=== PATIENT | male | born 1930 | race Two or more races ===

== ENCOUNTER 2019-04-17 19:09 | Emergency (ER) | payer MEDICAID ==
[~2019-04-17] VITALS: Ht 177.8 cm; Wt 81.6 kg
[~2019-04-17 19:09] MED LIST: AMLO5TAB13 PO; ASPI81TA27 PO; ATO40T PO; DOXA1TAB42 PO; FURO40TA PO; GABA300C10 PO; GEMF600T7 PO; METF-370 PO; PAR20T PO; RANI150C11 PO
[2019-04-17 20:12] LABS: Basophils # (auto) 0.1 uL; Eosinophils # (auto) 0.2 uL; Eosinophils % (auto) 1.5 % (0.0-7.0); Mean Corpuscular Hemoglobin 26.3 pg (28.0-32.0); Red Cell Distribution Width 15.9 % (11.8-14.3)
[2019-04-17 20:14] LABS: Basophils % (auto) 1.1 % (0.0-2.0); Hematocrit 39.6 % (41.0-53.0); Hemoglobin 12.7 g/dL (13.5-17.5); Lymphocytes # (auto) 2.4 uL; Lymphocytes % (auto) 21.8 % (10.0-50.0); Mean Corpuscular Volume 82.2 fL (80.0-100.0); Monocytes % (auto) 8.9 % (0.0-12.0); Neutrophils # (auto) 7.3 uL; Neutrophils % (auto) 66.7 % (37.0-80.0); Platelet Count (auto) 348 10^3/uL (140-450); Red Blood Cells 4.82 10^6/uL (4.5-5.90); White Blood Cell 10.9 10^3/uL (4.4-10.8)
[2019-04-17 20:28] LABS: Albumin 3.4 g/dL (3.4-5.0); Calcium 9.2 mg/dL (8.5-10.1); Potassium 4.9 mmol/L (3.5-5.1)
[2019-04-17 20:31] LABS: BUN/Creatinine Ratio 27.5; Bilirubin, Total 0.2 mg/dL (0.2-1.0); Total Protein 8.5 g/dL (6.4-8.2)
[2019-04-17 20:35] LABS: Urine Bacteria MANY /hpf (None Seen); Urine Blood 1+ /uL (Negative); Urine Mucus FEW (None Seen); Urine Specific Gravity 1.012 (1.001-1.035); Urine WBC 217 /hpf (0 - 3); Urine WBC Clumps PRESENT /hpf (None Seen)
[2019-04-18] MEDS ORDERED: cefTRIAXone 1GM/50ML D5W 50 ML IV ONE (07:45)
[2019-04-18] MEDS ORDERED: SODIUM CHLORIDE 0.9% 1,000 ML IV ONE (08:15)
[2019-04-18 08:54] VITALS: BP 146/62
== END 2019-04-18 08:45 | disposition home or self-care (01) ==
LOC: ER 19:14
DX: N39.0 Urinary tract infection, site not specified (principal); E11.65 Type 2 diabetes mellitus with hyperglycemia; E78.5 Hyperlipidemia, unspecified; I10 Essential (primary) hypertension; Z90.49 Acquired absence of other specified parts of digestive tract; Z79.899 Other long term (current) drug therapy; Z79.82 Long term (current) use of aspirin
CPT/HCPCS: 36415; 74176; 80053; 81001; 85025; 96365; 99284; J0696; J7030

== ENCOUNTER 2019-05-24 11:48 | Inpatient (IN) | payer MEDICAID ==
[~2019-05-24] VITALS: Ht 177.8 cm; Wt 78.0 kg
[~2019-05-24 11:48] MED LIST changes: -AMLO5TAB13 PO; +AMLO5TAB15 PO; +ASPI-404 PO; -ASPI81TA27 PO; +FURO1TAB31 PO; -FURO40TA PO
[2019-05-24] MEDS ORDERED: SODIUM CHLORIDE 0.9% 1,000 ML IVB ONE (12:27)
[2019-05-24 12:56] LABS: Urine Bacteria MOD /hpf (None Seen); Urine Blood 1+ /uL (Negative); Urine WBC 183 /hpf (0 - 3); Urine WBC Clumps PRESENT /hpf (None Seen)
[2019-05-24 12:58] LABS: Eosinophils # (auto) 0 uL; Lymphocytes # (auto) 1.6 uL; Monocytes # (auto) 1.2 uL
[2019-05-24 13:00] LABS: Basophils # (auto) 0.1 uL; Basophils % (auto) 0.7 % (0.0-2.0); Eosinophils % (auto) 0.1 % (0.0-7.0); Hematocrit 34.7 % (41.0-53.0); Hemoglobin 11.1 g/dL (13.5-17.5); Lymphocytes % (auto) 8.1 % (10.0-50.0); Mean Corpuscular Volume 81.2 fL (80.0-100.0); Monocytes % (auto) 5.9 % (0.0-12.0); Neutrophils # (auto) 16.7 uL; Neutrophils % (auto) 85.2 % (37.0-80.0); Platelet Count (auto) 243 10^3/uL (140-450); Red Blood Cells 4.27 10^6/uL (4.5-5.90); Red Cell Distribution Width 14.9 % (11.8-14.3); White Blood Cell 19.6 10^3/uL (4.4-10.8)
[2019-05-24 13:04] LABS: Alcohol, Urine < 3.0 mg/dL (0-5); Barbiturate Scree,Urine NEGATIVE (NEGATIVE); Benzodiazephine Screen, Urine NEGATIVE (NEGATIVE); Cannabinoid Screen, Urine NEGATIVE (NEGATIVE); Cocaine Screen, Urine NEGATIVE (NEGATIVE); Opiate Scree,Urine NEGATIVE (NEGATIVE); Phencyclidine Screen, Urine NEGATIVE (NEGATIVE)
[2019-05-24 13:12] LABS: Amphetamine Screen, Urine NEGATIVE (NEGATIVE)
[2019-05-24 13:15] LABS: Alanine Aminotransferase 15 U/L (16-61); Albumin 2.6 g/dL (3.4-5.0); Anion Gap 9 (5-15); Aspartate Aminotransferase 8 U/L (15-37); BUN/Creatinine Ratio 28.9; Blood Urea Nitrogen 73 mg/dL (7-18); Calcium 8.4 mg/dL (8.5-10.1); Carbon Dioxide 22 mmol/L (21-32); Chloride 101 mmol/L (98-107); GFR African American 31 mL/min; GFR Non-African American 26 mL/min; Glucose 306 mg/dL (74-106); Magnesium 2.4 mg/dL (1.6-2.6); Potassium 4.1 mmol/L (3.5-5.1); Sodium 132 mmol/L (136-145)
[2019-05-24 13:20] LABS: Alkaline Phosphatase 71 U/L (45-117); Bilirubin, Total 0.3 mg/dL (0.2-1.0); Total Protein 7.7 g/dL (6.4-8.2)
[2019-05-24 13:23] LABS: INR 1.03 (0.9-1.15); Partial Thromboplastin Time 30.8 sec (23.64-32.05)
[2019-05-24] MEDS ORDERED: cefTRIAXone 1GM/50ML D5W 50 ML IV ONE ×2 (13:45→18:15)
[2019-05-24] MEDS ORDERED: MORPHINE SULF INJ 2 MG/ML SYRINGE 1ML IV PRN (18:15)
[2019-05-24] MEDS ORDERED: NITROGLYCERIN 0.4 MG SL TAB SL PRN (18:15)
[2019-05-24] MEDS ORDERED: ACETAMINOPHEN 500 MG TAB PO PRN (18:15)
[2019-05-24] MEDS ORDERED: DEXTROSE (50%) 50ML SYRG IV PRN (18:15)
[2019-05-24] MEDS ORDERED: ONDANSETRON HCL 4 MG/2 ML VIAL IV PRN (18:15)
[2019-05-24] MEDS ORDERED: traMADol HCL 50 MG TAB PO PRN (18:15)
[2019-05-24] MEDS: SODIUM CHLORIDE 0.9% 1,000 ML IV SCH (18:52)
--- NOTE | 2019-05-24 20:03 | NUR ---
Telemetry admit from KEVIN HILLMAN admitted to Telemetry unit after NO SBAR was received. Patient oriented to DARCY BARONE, RN primary RN, unit, room, bed, and unit policies regarding patient care and visiting hours. Patient now on continuous telemetry monitoring, tele box # 48 and telemetry reading on arrival to unit is SINUS RHYTHM. Patient placed on bedside oxygen 4 L/MIN, weighed by bedscale and encouraged to call if they need something. Family is at bedside. Patient is A/O x3, he is unaware of the time and verbalized that it was the year 1999 and our president was a bhatti. No S/S/of distress, SOB, or pain. Skin is generalized intact, there is a wound on the great left toe, family states it has been there since October and he has taken antibiotics for it off and on. Accucheck was 321 to be covered with 12 units of insulin on the moderate scale. VSS WNL. Call light is within reach, side rails up x2, bed is in lowest position, BED ALARM IS ON, urinal and bedside commode at bedside. All questions and concerns addressed, patient verbalized understanding.
[2019-05-24] MEDS: InsuLIN REG 1unit/0.01ml Soln (100units/ml) SC SCH (21:17)
[2019-05-24] MEDS: ACCU-CHEK COMFORT CURVE STRIP VI SCH (21:18)
--- NOTE | 2019-05-24 21:45 | NUR ---
Wound pictures taken of left great toe.
[2019-05-24] MEDS: GABAPENTIN 300 MG CAP PO SCH (21:51)
[2019-05-24] MEDS: DOXAZOSIN MESYL 2 MG TAB PO SCH (21:51)
[2019-05-24 22:00] VITALS: BP 144/69
[2019-05-24] MEDS ORDERED: GEMFIBROZIL 600 MG TAB PO SCH (22:00)
[2019-05-24] MEDS ORDERED: PNEUMOCOCCAL VACC POLYS 25 MCG/0.5 ML VIAL IM ONE (23:45)
[2019-05-25] MEDS: InsuLIN REG 1unit/0.01ml Soln (100units/ml) SC SCH ×6 (00:18→19:34)
[2019-05-25] MEDS: ACCU-CHEK COMFORT CURVE STRIP VI SCH ×6 (00:19→19:33)
[2019-05-25] MEDS: SODIUM CHLORIDE 0.9% 1,000 ML IV SCH ×3 (04:10→23:02)
--- NOTE | 2019-05-25 04:10 | NUR ---
0400 accucheck was 64, orange juice was given. Will reassess in 10 min.
--- NOTE | 2019-05-25 04:24 | NUR ---
Patient's blood sugar is now 100. He is resting in bed. No S/S of distress. Will continue to monitor and round prn.
[2019-05-25 04:56] VITALS: BP 115/50
[2019-05-25 06:06] LABS: Basophils # (auto) 0.1 uL; Eosinophils # (auto) 0.1 uL; Hematocrit 31.2 % (41.0-53.0); Hemoglobin 10.3 g/dL (13.5-17.5)
[2019-05-25 06:08] LABS: Basophils % (auto) 0.6 % (0.0-2.0); Eosinophils % (auto) 0.5 % (0.0-7.0); Lymphocytes # (auto) 1.2 uL; Lymphocytes % (auto) 8.1 % (10.0-50.0); Mean Corpuscular Hemoglobin 26.4 pg (28.0-32.0); Monocytes # (auto) 1.1 uL; Monocytes % (auto) 7.7 % (0.0-12.0); Neutrophils % (auto) 83.1 % (37.0-80.0); Platelet Count (auto) 213 10^3/uL (140-450); Red Cell Distribution Width 14.7 % (11.8-14.3); White Blood Cell 14.5 10^3/uL (4.4-10.8)
[2019-05-25 06:29] LABS: Albumin 2.2 g/dL (3.4-5.0); Calcium 8.1 mg/dL (8.5-10.1); Potassium 3.3 mmol/L (3.5-5.1)
[2019-05-25 06:32] LABS: BUN/Creatinine Ratio 28.4; Bilirubin, Total 0.3 mg/dL (0.2-1.0); Total Protein 6.8 g/dL (6.4-8.2)
[2019-05-25] MEDS: cefTRIAXone 1GM/50ML D5W 50 ML IV SCH (09:29)
[2019-05-25] MEDS: ASPirin-EC 81 mg tab PO SCH (09:29)
[2019-05-25] MEDS: PARoxetine 20 MG TAB PO SCH (09:30)
[2019-05-25] MEDS: PANTOPRAZOLE 40 MG TAB PO SCH (09:30)
[2019-05-25] MEDS: amLODIPine BESYLATE 5 MG TAB PO SCH (09:30)
[2019-05-25] MEDS: GABAPENTIN 300 MG CAP PO SCH (09:30)
--- NOTE | 2019-05-25 14:37 | NUR ---
Endorsed care to Zita ARAGON.
--- NOTE | 2019-05-25 14:40 | NUR ---
RECEIVED PATIENT FROM DAY SHIFT RN. PATIENT RESTING IN BED. NO S/S OF DISTRESS NOTED. DENIED PAIN FOR NOW. POC INSTRUCTED AND ENCOURAGED PATIENT TO CALL FOR BROOMCORN SORTER IF NEEDED. BED IN LOWEST POSITION WITH SIDE RAILS UP X 2. CALL MURRELL WITHIN REACH. ALARM ON. CONTINUE TO MONITOR FOR CHANGES Q1H AND PRN.
--- NOTE | 2019-05-25 16:00 | NUR ---
ACCU-CHECK, BS 269. INSULIN GIVEN ORDERED. CONTINUE TO MONITOR.
[2019-05-25] MEDS: ATORVASTATIN 20 MG TAB PO SCH (18:23)
--- NOTE | 2019-05-25 19:40 | NUR ---
ACCU-CHECK, BS 143. INSULIN GIVEN ORDERED. CONTINUE TO MONITOR.
[2019-05-25 21:37] VITALS: BP 125/62
[2019-05-25] MEDS: DOXAZOSIN MESYL 2 MG TAB PO SCH (21:39)
--- NOTE | 2019-05-25 21:39 | NUR ---
ORAL MEDICATION GIVEN ORDERED. PATIENT SWALLOWED WELL. CONTINUE CARE.
[2019-05-26] MEDS: ACCU-CHEK COMFORT CURVE STRIP VI SCH ×5 (00:28→17:16)
[2019-05-26] MEDS: TEMAZEPAM 15 MG CAP PO PRN ×2 (00:29→22:17)
--- NOTE | 2019-05-26 00:29 | NUR ---
ACCU-CHECK, BS 126. NO COVERAGE. CONTINUE TO MONITOR.
--- NOTE | 2019-05-26 02:29 | NUR ---
PATIENT SLEEPING. NO S/S OF DISTRESS NOTED. CONTINUE TO MONITOR.
[2019-05-26] MEDS: InsuLIN REG 1unit/0.01ml Soln (100units/ml) SC SCH ×5 (03:49→17:16)
--- NOTE | 2019-05-26 04:07 | NUR ---
ACCU-CHECK, BS 144. INSULIN GIVEN ORDERED. CONTINUE TO MONITOR.
[2019-05-26 05:00] VITALS: BP 121/66
--- NOTE | 2019-05-26 07:15 | NUR ---
Opening Note Received report from tender labor RN. Patient is resting in bed with eyes closed, easy to wake by calling name. Patient denies pain at this time. Patient is on 4L NC, denies shortness of breath at this time. Reviewed plan of care with patient, patient verbalized understanding. Bed in low and locked position, call light within reach. Will continue to monitor Q1 hour and PRN.
[2019-05-26] MEDS: cefTRIAXone 1GM/50ML D5W 50 ML IV SCH (08:30)
[2019-05-26 09:00] VITALS: BP 126/63
[2019-05-26] MEDS: PANTOPRAZOLE 40 MG TAB PO SCH (09:32)
[2019-05-26] MEDS: GABAPENTIN 300 MG CAP PO SCH (09:33)
[2019-05-26] MEDS: PARoxetine 20 MG TAB PO SCH (09:33)
[2019-05-26] MEDS: ASPirin-EC 81 mg tab PO SCH (09:33)
[2019-05-26] MEDS: amLODIPine BESYLATE 5 MG TAB PO SCH (09:33)
--- NOTE | 2019-05-26 10:25 | NUR ---
Patient ambulated Patient ambulated to restroom, standby assistance and walker. Patient tolerated well. Will continue to monitor Q1 hour and PRN.
[2019-05-26] MEDS: SODIUM CHLORIDE 0.9% 1,000 ML IV SCH ×2 (11:34→15:15)
[2019-05-26 13:00] VITALS: BP 113/63
--- NOTE | 2019-05-26 16:45 | NUR ---
Abdominal Pain Patient complains of abdominal pain 8/10, and is requesting pain medications. Will medicate per orders.
[2019-05-26] MEDS: ATORVASTATIN 20 MG TAB PO SCH (17:15)
--- NOTE | 2019-05-26 19:05 | NUR ---
Closing Note Report given to scene shifter RN. Family at bedside, no signs or symptoms of distress noted at this time.
--- NOTE | 2019-05-26 19:41 | NUR ---
RECEIVED PATIENT FROM DAY SHIFT RN. PATIENT RESTING IN BED. FAMILY AT BEDSIDE. NO S/S OF DISTRESS NOTED. DENIED PAIN FOR NOW. ASSISTED PATIENT TO BATHROOM. PATIENT HAD BM. POC INSTRUCTED AND ENCOURAGED PATIENT TO CALL FOR CD MANUFACTURING SUPERVISOR IF NEEDED. BED IN LOWEST POSITION WITH SIDE RAILS UP X 2. CALL MURRELL WITHIN REACH. ALARM ON. CONTINUE TO MONITOR FOR CHANGES Q1H AND PRN.
[2019-05-26] MEDS ORDERED: InsuLIN REG 1unit/0.01ml Soln (100units/ml) SC SCH (20:00)
[2019-05-26 22:00] VITALS: BP 138/64
[2019-05-26] MEDS: DOXAZOSIN MESYL 2 MG TAB PO SCH (22:07)
--- NOTE | 2019-05-26 22:17 | NUR ---
ORAL MEDICATION GIVEN ORDERED. PATIENT SWALLOWED WELL. CONTINUE CARE.
[2019-05-27] MEDS: ACCU-CHEK COMFORT CURVE STRIP VI SCH ×4 (00:13→17:57)
[2019-05-27] MEDS: InsuLIN REG 1unit/0.01ml Soln (100units/ml) SC SCH ×4 (00:14→17:57)
--- NOTE | 2019-05-27 00:14 | NUR ---
ACCU-CHECK, BS 225. INSULIN GIVEN ORDERED. CONTINUE TO MONITOR.
--- NOTE | 2019-05-27 03:06 | NUR ---
PATIENT SLEEPING. NO S/S OF DISTRESS NOTED. CONTINUE TO MONITOR.
[2019-05-27 05:00] VITALS: BP 125/51
--- NOTE | 2019-05-27 05:55 | NUR ---
ACCU-CHECK, BS 96. NO COVERAGE. CONTINUE TO MONITOR.
[2019-05-27 06:48] LABS: Lymphocytes # (auto) 1.6 uL
[2019-05-27 06:51] LABS: Basophils # (auto) 0 uL; Basophils % (auto) 0.4 % (0.0-2.0); Eosinophils # (auto) 0.3 uL; Hematocrit 31.4 % (41.0-53.0); Hemoglobin 10.1 g/dL (13.5-17.5); Lymphocytes % (auto) 17.9 % (10.0-50.0); Mean Corpuscular Hemoglobin 26.3 pg (28.0-32.0); Mean Corpuscular Hgb Conc. 32.2 g/dL (32.0-36.0); Mean Corpuscular Volume 81.6 fL (80.0-100.0); Monocytes # (auto) 0.9 uL; Monocytes % (auto) 10.1 % (0.0-12.0); Neutrophils % (auto) 68.6 % (37.0-80.0); Nucleated Red Blood Cells % 0.1 %; Platelet Count (auto) 229 10^3/uL (140-450); Red Blood Cells 3.84 10^6/uL (4.5-5.90); Red Cell Distribution Width 15.1 % (11.8-14.3); White Blood Cell 8.7 10^3/uL (4.4-10.8)
[2019-05-27 07:10] LABS: BUN/Creatinine Ratio 27.9; Calcium 8.2 mg/dL (8.5-10.1); Potassium 3.9 mmol/L (3.5-5.1)
--- NOTE | 2019-05-27 07:35 | NUR ---
Opening Note Received report from harness fitter RN. Patient is resting in bed, with eyes closed. Patient is on 4L NC, respirations even and unlabored. Bed in low and locked position, call light within reach. Will continue to monitor Q1 hour and PRN.
[2019-05-27] MEDS: SODIUM CHLORIDE 0.9% 1,000 ML IV SCH (09:04)
[2019-05-27] MEDS: cefTRIAXone 1GM/50ML D5W 50 ML IV SCH (09:04)
[2019-05-27 09:21] VITALS: BP 137/73
[2019-05-27] MEDS: GABAPENTIN 300 MG CAP PO SCH (09:42)
[2019-05-27] MEDS: amLODIPine BESYLATE 5 MG TAB PO SCH (09:42)
[2019-05-27] MEDS: PARoxetine 20 MG TAB PO SCH (09:42)
[2019-05-27] MEDS: PANTOPRAZOLE 40 MG TAB PO SCH (09:42)
[2019-05-27] MEDS: ASPirin-EC 81 mg tab PO SCH (09:43)
--- NOTE | 2019-05-27 11:15 | NUR ---
Dr. Lucio at bedside Reviewing plan of care with patient and family, using a shearing machine tender. Daughters and patient are refusing rehab after discharge. Both daughters state they want the patient to discharge home and they will care for him there. Educated by the doctor the risks of going home, family and patient verbalized understanding. Will continue to monitor
--- NOTE | 2019-05-27 12:30 | NUR ---
Physical Therapy Patient ambulated in hallway with physical therapy, using a front wheel walker. Patient tolerated well
[2019-05-27 13:34] VITALS: BP 135/75
[2019-05-27 13:44] VITALS: BP 137/73
--- NOTE | 2019-05-27 14:13 | NUR ---
SS ORDER faxed to Kinga garcia to give auth to Monika maki
--- NOTE | 2019-05-27 14:21 | NUR ---
Per Kinga Lan, [facility] is responsible for HH for this pt, faxed ss order to [facility]
--- NOTE | 2019-05-27 15:01 | NUR ---
Per [facility], Kinga sanchez responsible for HH. I called Kinga Lan and spoke to CIELO Perry and he requested Monika call him for auth. I called Monika and spoke to Veronika to call [facility]a Lan. HH is arranged
--- NOTE | 2019-05-27 16:43 | NUR ---
Per SS consult, patient has an order for home PT. Referral faxed, and per Veronika at [facility], they are willing to accept this case and start of care will be 24-48 hours upon discharge. Auth is pending from [facility]. Addendum: 05/27/19 at 1656 by KATIE CEE SS Amended: Links added.
--- NOTE | 2019-05-27 17:20 | NUR ---
Spoke to Lizbet from [facility] will start tomorrow and it is ok to discharge patient at this time.
[2019-05-27] MEDS: ATORVASTATIN 20 MG TAB PO SCH (17:57)
--- NOTE | 2019-05-27 18:20 | NUR ---
Discharge Discharge instructions given as ordered. Encourage to follow up with PMD as instructed. All questions and concerns addressed. Patient verbalized understanding. Medication reconciliation form completed and copy given to patient. IV catheter removed, catheter intact, pressure dressing applied. New prescriptions given to family member. playground monitor removed and sent back to ALEJANDRA. Patient proved with taxi voucher. Patient taken via wheelchair with all personal belongings, accompanied by staff member and family members. Patient on 4L NC. No signs or symptoms of distress noted at this time.
[2019-06-05] MEDS ORDERED: INSU1INJ19 SC (12:34)
== END 2019-05-27 18:20 | disposition home health service (06) | DRG 720 ==
LOC: EDBD 11:48 → ER 11:48 → TELE 11:49 → TELE-WESTW 20:03
PROVIDERS: ADMIT Internal Medicine; ATTEND Internal Medicine
DX: A41.9 Sepsis, unspecified organism (principal); N17.0 Acute kidney failure with tubular necrosis; G93.41 Metabolic encephalopathy; J96.10 Chronic respiratory failure, unspecified whether with hypoxia or hypercapnia; I50.9 Heart failure, unspecified; E11.22 Type 2 diabetes mellitus with diabetic chronic kidney disease; E11.65 Type 2 diabetes mellitus with hyperglycemia; I13.0 Hypertensive heart and chronic kidney disease with heart failure and stage 1 through stage 4 chronic kidney disease, or unspecified chronic kidney disease; N39.0 Urinary tract infection, site not specified; N18.4 Chronic kidney disease, stage 4 (severe); I25.10 Atherosclerotic heart disease of native coronary artery without angina pectoris; F32.9 Major depressive disorder, single episode, unspecified; B96.20 Unspecified Escherichia coli [E. coli] as the cause of diseases classified elsewhere; E78.5 Hyperlipidemia, unspecified; E11.21 Type 2 diabetes mellitus with diabetic nephropathy; K21.9 Gastro-esophageal reflux disease without esophagitis; Z99.81 Dependence on supplemental oxygen; D63.8 Anemia in other chronic diseases classified elsewhere; N40.0 Benign prostatic hyperplasia without lower urinary tract symptoms; K74.60 Unspecified cirrhosis of liver; Z95.0 Presence of cardiac pacemaker; Z90.49 Acquired absence of other specified parts of digestive tract
CPT/HCPCS: 36415; 70450; 71045; 80048; 80053; 80307; 81001; 82962; 83605; 83735; 84484; 85025; 85610; 85730; 87040; 87086; 93005; G0378; J0696; J1815

== ENCOUNTER 2020-02-22 23:00 | Inpatient (IN) | payer MEDICAID ==
[~2020-02-22] VITALS: Ht 170.2 cm; Wt 75.5 kg
[~2020-02-22 23:00] MED LIST changes: +INSU1INJ19 SC
[2020-02-23 00:08] LABS: Basophils # (auto) 0.1 10 ^3/uL (0-0.2); Basophils % (auto) 1.2 % (0.0-2.0); Eosinophils # (auto) 0.1 10 ^3/uL (0-0.8); Eosinophils % (auto) 1.3 % (0.0-7.0); Hematocrit 28.3 % (41.0-53.0); Hemoglobin 8.9 g/dL (13.5-17.5); Lymphocytes # (auto) 0.8 10 ^3/uL (0.4-5.4); Lymphocytes % (auto) 9.8 % (10.0-50.0); Mean Corpuscular Hgb Conc. 31.6 g/dL (32.0-36.0); Mean Corpuscular Volume 85.6 fL (80.0-100.0); Monocytes % (auto) 12.3 % (0.0-12.0); Neutrophils % (auto) 75.4 % (37.0-80.0); Nucleated Red Blood Cells % 0.1 %; Platelet Count (auto) 293 10^3/uL (140-450); Red Blood Cells 3.31 10^6/uL (4.5-5.90); Red Cell Distribution Width 15.3 % (11.8-14.3)
[2020-02-23 00:21] LABS: Alanine Aminotransferase 31 U/L (16-61); Albumin 2.2 g/dL (3.4-5.0); Anion Gap 8 (5-15); Aspartate Aminotransferase 15 U/L (15-37); BUN/Creatinine Ratio 10.1; Blood Urea Nitrogen 43 mg/dL (7-18); Calcium 7.8 mg/dL (8.5-10.1); Carbon Dioxide 28 mmol/L (21-32); Chloride 94 mmol/L (98-107); GFR African American 17 mL/min; GFR Non-African American 14 mL/min; Glucose 166 mg/dL (74-106); Potassium 4.3 mmol/L (3.5-5.1); Sodium 130 mmol/L (136-145)
[2020-02-23 00:23] LABS: INR 1.18 (0.9-1.15); Partial Thromboplastin Time 28.8 sec (23.64-32.05)
[2020-02-23 00:55] LABS: Urine Bacteria NONE SEEN /hpf (None Seen); Urine Blood 1+ /uL (Negative); Urine Hyaline Cast FEW /lpf (0 - 2); Urine Mucus FEW (None Seen); Urine Specific Gravity 1.013 (1.001-1.035); Urine WBC 214 /hpf (0 - 3); Urine WBC Clumps PRESENT /hpf (None Seen)
[2020-02-23 00:57] LABS: Alkaline Phosphatase 58 U/L (45-117); Bilirubin, Total 0.4 mg/dL (0.2-1.0); Total Protein 6.8 g/dL (6.4-8.2)
[2020-02-23] MEDS ORDERED: levoFLOXacin 750MG 150 ML IV ONE (03:15)
[2020-02-23] MEDS ORDERED: SODIUM CHLORIDE 0.9% 1,000 ML IV SCH ×4 (05:35→19:00)
[2020-02-23] MEDS ORDERED: DOCUSATE SOD 100 MG CAP PO PRN (05:45)
[2020-02-23] MEDS ORDERED: HYDROcodone-ACET 5/325MG TAB PO PRN (05:45)
[2020-02-23] MEDS ORDERED: ACETAMINOPHEN 500 MG TAB PO PRN (05:45)
[2020-02-23] MEDS ORDERED: ACETAMINOPHEN 325 MG TAB PO PRN ×2 (05:45→15:45)
[2020-02-23] MEDS ORDERED: DEXTROSE (50%) 50ML SYRG IV PRN (05:45)
[2020-02-23] MEDS ORDERED: ONDANSETRON HCL 4 MG/2 ML VIAL IV PRN (05:45)
[2020-02-23] MEDS ORDERED: MORPHINE SULFATE 4 MG/ML SYR/VIAL IV PRN (05:45)
[2020-02-23] MEDS ORDERED: ALBUTEROL SULF HFA 90MCG INH 200DOSE IN SCH ×2 (06:00)
[2020-02-23] MEDS ORDERED: InsuLIN REG 1unit/0.01ml Soln (100units/ml) SC SCH (08:00)
[2020-02-23] MEDS ORDERED: ACCU-CHEK COMFORT CURVE STRIP VI SCH (08:00)
[2020-02-23 08:15] LABS: Basophils # (auto) 0.1 10 ^3/uL (0-0.2); Basophils % (auto) 0.8 % (0.0-2.0); Eosinophils # (auto) 0.2 10 ^3/uL (0-0.8); Hemoglobin 9.1 g/dL (13.5-17.5); Lymphocytes # (auto) 0.9 10 ^3/uL (0.4-5.4); Lymphocytes % (auto) 11.8 % (10.0-50.0); Mean Corpuscular Hemoglobin 27.7 pg (28.0-32.0); Mean Corpuscular Hgb Conc. 31.5 g/dL (32.0-36.0); Monocytes # (auto) 0.9 10 ^3/uL (0-1.3); Monocytes % (auto) 12.2 % (0.0-12.0); Neutrophils # (auto) 5.3 10 ^3/uL (1.6-8.6); Neutrophils % (auto) 72.2 % (37.0-80.0); Platelet Count (auto) 271 10^3/uL (140-450); Red Blood Cells 3.29 10^6/uL (4.5-5.90); Red Cell Distribution Width 15.6 % (11.8-14.3); White Blood Cell 7.3 10^3/uL (4.4-10.8)
[2020-02-23 08:29] LABS: Anion Gap 8 (5-15); BUN/Creatinine Ratio 9.7; Blood Urea Nitrogen 44 mg/dL (7-18); Calcium 7.8 mg/dL (8.5-10.1); Carbon Dioxide 27 mmol/L (21-32); Chloride 96 mmol/L (98-107); GFR African American 16 mL/min; GFR Non-African American 13 mL/min; Glucose 105 mg/dL (74-106); Potassium 4.1 mmol/L (3.5-5.1); Sodium 131 mmol/L (136-145)
[2020-02-23] MEDS: ASPirin-EC 81 mg tab PO SCH (09:38)
[2020-02-23] MEDS: GABAPENTIN 300 MG CAP PO SCH ×2 (09:41→21:20)
[2020-02-23] MEDS: GEMFIBROZIL 600 MG TAB PO SCH ×2 (09:41→21:20)
[2020-02-23] MEDS: amLODIPine BESYLATE 5 MG TAB PO SCH (09:41)
[2020-02-23] MEDS: FUROSEMIDE 40 MG TAB PO SCH (09:42)
[2020-02-23] MEDS: PARoxetine 20 MG TAB PO SCH (09:42)
[2020-02-23] MEDS: ENOXAPARIN SOD 30 MG/0.3 ML SYRINGE SC SCH (09:44)
[2020-02-23 09:52] LABS: CRP High Sensitivity 10.7 mg/dL (< 0.3)
[2020-02-23] MEDS ORDERED: ENOXAPARIN SOD 40 MG/0.4 ML SYRINGE SC SCH (10:00)
[2020-02-23] MEDS ORDERED: CHOLECALCIFEROL (VITD3) 1,000IU=25mCg TAB PO SCH (10:00)
[2020-02-23] MEDS ORDERED: methylPREDNISolone SOD SUCC 125 MG/2 ML VL IV SCH (10:00)
[2020-02-23] MEDS ORDERED: ZINC SULFATE 220mg CAP or TAB PO SCH (10:00)
[2020-02-23] MEDS: ZANTAC 150 MG PO SCH ×2 (10:00→20:52)
[2020-02-23] MEDS ORDERED: DOXYCYCLINE 100MG/250ML 250 ML IV SCH (10:00)
[2020-02-23] MEDS ORDERED: ASCORBIC ACID 1,000 MG TAB PO SCH (10:00)
[2020-02-23 10:36] VITALS: BP 114/51
[2020-02-23 10:41] VITALS: BP 109/49
[2020-02-23] MEDS: cefTRIAXone 1GM/50ML D5W 50 ML IV SCH (11:13)
[2020-02-23] MEDS: InsuLIN REG 1unit/0.01ml Soln (100units/ml) SC SCH ×3 (12:29→21:21)
[2020-02-23] MEDS: ACCU-CHEK COMFORT CURVE STRIP VI SCH ×3 (12:30→21:20)
[2020-02-23] MEDS ORDERED: MORPHINE SULF INJ 2 MG/ML SYRINGE 1ML IV PRN (15:45)
[2020-02-23 17:00] VITALS: BP 114/56
[2020-02-23] MEDS: ATORVASTATIN 20 MG TAB PO SCH (21:20)
[2020-02-23] MEDS: DOXAZOSIN MESYL 2 MG TAB PO SCH (21:21)
[2020-02-23 22:00] VITALS: BP 122/50
[2020-02-24 05:00] VITALS: BP 112/54
[2020-02-24 06:04] LABS: Basophils # (auto) 0 10 ^3/uL (0-0.2); Basophils % (auto) 0.1 % (0.0-2.0); Eosinophils # (auto) 0 10 ^3/uL (0-0.8); Hematocrit 27.6 % (41.0-53.0); Hemoglobin 9.4 g/dL (13.5-17.5); Lymphocytes # (auto) 0.5 10 ^3/uL (0.4-5.4); Lymphocytes % (auto) 9.5 % (10.0-50.0); Mean Corpuscular Hemoglobin 28.4 pg (28.0-32.0); Mean Corpuscular Hgb Conc. 33.8 g/dL (32.0-36.0); Mean Corpuscular Volume 83.8 fL (80.0-100.0); Monocytes # (auto) 0.2 10 ^3/uL (0-1.3); Monocytes % (auto) 3.8 % (0.0-12.0); Neutrophils # (auto) 4.8 10 ^3/uL (1.6-8.6); Neutrophils % (auto) 86.6 % (37.0-80.0); Platelet Count (auto) 273 10^3/uL (140-450); Red Cell Distribution Width 14.6 % (11.8-14.3); White Blood Cell 5.6 10^3/uL (4.4-10.8)
[2020-02-24] MEDS: ACCU-CHEK COMFORT CURVE STRIP VI SCH ×4 (06:07→22:33)
[2020-02-24] MEDS: InsuLIN REG 1unit/0.01ml Soln (100units/ml) SC SCH ×4 (06:08→22:40)
[2020-02-24 06:24] LABS: Albumin 2.3 g/dL (3.4-5.0); Calcium 8.4 mg/dL (8.5-10.1)
[2020-02-24 06:29] LABS: Bilirubin, Total 0.4 mg/dL (0.2-1.0)
[2020-02-24] MEDS ORDERED: SODIUM CHL 0.9% 1000 ML BAG XX ONE (07:00)
[2020-02-24 09:01] VITALS: BP 116/55
[2020-02-24] MEDS: ZANTAC 150 MG PO SCH ×3 (10:00→22:00)
[2020-02-24] MEDS: FUROSEMIDE 40 MG TAB PO SCH (10:24)
[2020-02-24] MEDS: ASPirin-EC 81 mg tab PO SCH (10:24)
[2020-02-24] MEDS: GEMFIBROZIL 600 MG TAB PO SCH ×2 (10:24→22:32)
[2020-02-24] MEDS: AZITHROMYCIN 250 MG TAB PO SCH (10:25)
[2020-02-24] MEDS: amLODIPine BESYLATE 5 MG TAB PO SCH (10:25)
[2020-02-24] MEDS: ENOXAPARIN SOD 30 MG/0.3 ML SYRINGE SC SCH (10:25)
[2020-02-24] MEDS: GABAPENTIN 300 MG CAP PO SCH ×2 (10:25→22:33)
[2020-02-24] MEDS: PARoxetine 20 MG TAB PO SCH (10:25)
[2020-02-24] MEDS: cefTRIAXone 1GM/50ML D5W 50 ML IV SCH (11:12)
[2020-02-24 13:00] VITALS: BP 116/60
[2020-02-24] MEDS ORDERED: ALOG2.5T PO (15:11)
[2020-02-24] MEDS ORDERED: AMLO10TA13 PO (15:15)
[2020-02-24] MEDS ORDERED: ALBU0.084 NEB (15:25)
[2020-02-24 16:22] VITALS: BP 101/57
[2020-02-24 20:05] VITALS: BP 122/57
[2020-02-24 22:00] VITALS: BP 122/57
[2020-02-24] MEDS: ALBUTEROL SULF 2.5 MG/0.5ML(0.5%) NEB SOLN NEB PRN (22:30)
[2020-02-24] MEDS: IPRATROPIUM BROM 0.5 MG/2.5ML INH SOL NEB PRN (22:31)
[2020-02-24] MEDS: DOXAZOSIN MESYL 2 MG TAB PO SCH (22:32)
[2020-02-24] MEDS: ATORVASTATIN 20 MG TAB PO SCH (22:32)
[2020-02-25] VITALS (7 sets, daily range): BP systolic 96–116; BP diastolic 41–54
[2020-02-25] MEDS: TEMAZEPAM 15 MG CAP PO PRN ×2 (00:02→22:16)
[2020-02-25] MEDS: ALBUTEROL SULF 2.5 MG/0.5ML(0.5%) NEB SOLN NEB PRN ×3 (06:33→14:05)
[2020-02-25] MEDS: IPRATROPIUM BROM 0.5 MG/2.5ML INH SOL NEB PRN ×3 (06:33→14:05)
[2020-02-25] MEDS: ACCU-CHEK COMFORT CURVE STRIP VI SCH ×4 (06:37→22:17)
[2020-02-25] MEDS: InsuLIN REG 1unit/0.01ml Soln (100units/ml) SC SCH ×4 (06:37→22:32)
[2020-02-25] MEDS: GEMFIBROZIL 600 MG TAB PO SCH ×2 (09:45→22:16)
[2020-02-25] MEDS: PARoxetine 20 MG TAB PO SCH (09:45)
[2020-02-25] MEDS: cefTRIAXone 1GM/50ML D5W 50 ML IV SCH (09:45)
[2020-02-25] MEDS: GABAPENTIN 300 MG CAP PO SCH ×2 (09:45→22:16)
[2020-02-25] MEDS: AZITHROMYCIN 250 MG TAB PO SCH (09:46)
[2020-02-25] MEDS: amLODIPine BESYLATE 5 MG TAB PO SCH ×2 (09:46→09:49)
[2020-02-25] MEDS: ENOXAPARIN SOD 30 MG/0.3 ML SYRINGE SC SCH (09:47)
[2020-02-25] MEDS: FUROSEMIDE 40 MG TAB PO SCH (09:47)
[2020-02-25] MEDS: ASPirin-EC 81 mg tab PO SCH (09:47)
[2020-02-25] MEDS: ZANTAC 150 MG PO SCH ×2 (09:49→22:00)
[2020-02-25] MEDS ORDERED: IOHEXOL 350 MG/ML 100ML IJ ONE (10:58)
[2020-02-25] MEDS: ATORVASTATIN 20 MG TAB PO SCH (22:15)
[2020-02-25] MEDS: DOXAZOSIN MESYL 2 MG TAB PO SCH (22:15)
[2020-02-26 05:00] VITALS: BP 121/59
[2020-02-26] MEDS: ALBUTEROL SULF 2.5 MG/0.5ML(0.5%) NEB SOLN NEB PRN (06:43)
[2020-02-26] MEDS: IPRATROPIUM BROM 0.5 MG/2.5ML INH SOL NEB PRN (06:43)
[2020-02-26] MEDS: ACCU-CHEK COMFORT CURVE STRIP VI SCH ×4 (06:55→22:00)
[2020-02-26] MEDS: InsuLIN REG 1unit/0.01ml Soln (100units/ml) SC SCH ×4 (06:55→22:01)
[2020-02-26 09:02] VITALS: BP 102/41
[2020-02-26] MEDS: cefTRIAXone 1GM/50ML D5W 50 ML IV SCH (09:52)
[2020-02-26] MEDS: FUROSEMIDE 40 MG TAB PO SCH (09:53)
[2020-02-26] MEDS: ASPirin-EC 81 mg tab PO SCH (09:53)
[2020-02-26] MEDS: GEMFIBROZIL 600 MG TAB PO SCH ×2 (09:54→22:00)
[2020-02-26] MEDS: amLODIPine BESYLATE 5 MG TAB PO SCH (09:54)
[2020-02-26] MEDS: GABAPENTIN 300 MG CAP PO SCH ×2 (09:54→22:00)
[2020-02-26] MEDS: ENOXAPARIN SOD 30 MG/0.3 ML SYRINGE SC SCH (09:55)
[2020-02-26] MEDS: AZITHROMYCIN 250 MG TAB PO SCH (09:55)
[2020-02-26] MEDS: PARoxetine 20 MG TAB PO SCH (09:55)
[2020-02-26] MEDS: ZANTAC 150 MG PO SCH ×2 (10:00→21:59)
[2020-02-26 13:00] VITALS: BP 116/54
[2020-02-26] MEDS ORDERED: SODIUM CHL 0.9% 1000 ML BAG XX ONE (13:30)
[2020-02-26 15:34] VITALS: BP 116/54
[2020-02-26 16:36] VITALS: BP 110/54
[2020-02-26] MEDS ORDERED: EPOETIN ALFA 4,000 UNIT/ML VL SC ONE (21:00)
[2020-02-26 22:00] VITALS: BP 127/57
[2020-02-26] MEDS: DOXAZOSIN MESYL 2 MG TAB PO SCH (22:00)
[2020-02-26] MEDS: ATORVASTATIN 20 MG TAB PO SCH (22:00)
[2020-02-27 05:00] VITALS: BP 105/46
[2020-02-27 06:08] LABS: Basophils # (auto) 0.1 10 ^3/uL (0-0.2); Basophils % (auto) 0.8 % (0.0-2.0); Eosinophils # (auto) 0.2 10 ^3/uL (0-0.8); Eosinophils % (auto) 3.6 % (0.0-7.0); Hematocrit 28.3 % (41.0-53.0); Hemoglobin 9.4 g/dL (13.5-17.5); Lymphocytes # (auto) 0.9 10 ^3/uL (0.4-5.4); Lymphocytes % (auto) 13.3 % (10.0-50.0); Mean Corpuscular Hemoglobin 27.8 pg (28.0-32.0); Mean Corpuscular Hgb Conc. 33.1 g/dL (32.0-36.0); Monocytes # (auto) 0.8 10 ^3/uL (0-1.3); Monocytes % (auto) 11.6 % (0.0-12.0); Neutrophils # (auto) 4.7 10 ^3/uL (1.6-8.6); Neutrophils % (auto) 70.7 % (37.0-80.0); Platelet Count (auto) 262 10^3/uL (140-450); Red Blood Cells 3.37 10^6/uL (4.5-5.90); Red Cell Distribution Width 15.9 % (11.8-14.3); White Blood Cell 6.6 10^3/uL (4.4-10.8)
[2020-02-27 06:19] LABS: BUN/Creatinine Ratio 12.9; Calcium 7.6 mg/dL (8.5-10.1); Potassium 3.6 mmol/L (3.5-5.1)
[2020-02-27] MEDS: ACCU-CHEK COMFORT CURVE STRIP VI SCH ×4 (06:52→22:24)
[2020-02-27] MEDS: InsuLIN REG 1unit/0.01ml Soln (100units/ml) SC SCH ×4 (06:52→22:26)
[2020-02-27] MEDS ORDERED: ADENOSINE 62 MG in GIVE UN-DILUTED 0 ML IV ONE (08:30)
[2020-02-27 08:41] VITALS: BP 115/53
[2020-02-27] MEDS: GABAPENTIN 300 MG CAP PO SCH ×2 (10:00→22:24)
[2020-02-27] MEDS: ZANTAC 150 MG PO SCH ×2 (10:00→22:00)
[2020-02-27] MEDS: ASPirin-EC 81 mg tab PO SCH (14:35)
[2020-02-27] MEDS: ENOXAPARIN SOD 30 MG/0.3 ML SYRINGE SC SCH (14:35)
[2020-02-27] MEDS: FUROSEMIDE 40 MG TAB PO SCH (14:36)
[2020-02-27] MEDS: AZITHROMYCIN 250 MG TAB PO SCH (14:36)
[2020-02-27] MEDS: PARoxetine 20 MG TAB PO SCH (14:36)
[2020-02-27] MEDS ORDERED: MEROPENEM 500MG IVPB 50 ML IV SCH (16:00)
[2020-02-27 16:53] VITALS: BP 100/48
[2020-02-27 21:44] VITALS: BP 109/51
[2020-02-27] MEDS: ATORVASTATIN 20 MG TAB PO SCH (22:23)
[2020-02-27] MEDS: DOXAZOSIN MESYL 2 MG TAB PO SCH (22:23)
[2020-02-27] MEDS: TEMAZEPAM 15 MG CAP PO PRN (22:27)
[2020-02-28 04:49] VITALS: BP 106/52
[2020-02-28] MEDS: InsuLIN REG 1unit/0.01ml Soln (100units/ml) SC SCH ×2 (06:41→12:28)
[2020-02-28] MEDS: ACCU-CHEK COMFORT CURVE STRIP VI SCH ×2 (06:41→12:29)
[2020-02-28] MEDS ORDERED: SODIUM CHL 0.9% 1000 ML BAG XX ONE (07:00)
[2020-02-28 08:41] VITALS: BP 101/64
[2020-02-28] MEDS: ZANTAC 150 MG PO SCH (10:00)
[2020-02-28] MEDS: ASPirin-EC 81 mg tab PO SCH (10:32)
[2020-02-28] MEDS: PARoxetine 20 MG TAB PO SCH (10:33)
[2020-02-28] MEDS: AZITHROMYCIN 250 MG TAB PO SCH (10:33)
[2020-02-28] MEDS: GABAPENTIN 300 MG CAP PO SCH (10:33)
[2020-02-28] MEDS: ENOXAPARIN SOD 30 MG/0.3 ML SYRINGE SC SCH (10:34)
[2020-02-28] MEDS: FUROSEMIDE 40 MG TAB PO SCH (10:34)
[2020-02-28 12:47] VITALS: BP 118/62
[2020-02-28 15:14] VITALS: BP 135/52
[2020-02-28] MEDS ORDERED: EPOETIN ALFA 4,000 UNIT/ML VL SC ONE (21:00)
== END 2020-02-28 15:30 | disposition home or self-care (01) | DRG 133 ==
LOC: ER 23:00 → EDBD 23:00 → TELE 23:01 → TELE-EAST 02-23 10:34
PROVIDERS: ADMIT Hospitalist; ATTEND Internal Medicine Nephrology
PROC: 5A1D70Z Performance of Urinary Filtration, Intermittent, Less than 6 Hours Per Day (ICD-10-PCS; 2020-02-24)
PROC: 5A1D70Z Performance of Urinary Filtration, Intermittent, Less than 6 Hours Per Day (ICD-10-PCS; principal; 2020-02-26)
PROC: 5A1D70Z Performance of Urinary Filtration, Intermittent, Less than 6 Hours Per Day (ICD-10-PCS; 2020-02-28)
DX: J96.21 Acute and chronic respiratory failure with hypoxia (principal); J15.6 Pneumonia due to other Gram-negative bacteria; I13.2 Hypertensive heart and chronic kidney disease with heart failure and with stage 5 chronic kidney disease, or end stage renal disease; J12.9 Viral pneumonia, unspecified; I27.21 Secondary pulmonary arterial hypertension; E11.22 Type 2 diabetes mellitus with diabetic chronic kidney disease; N18.6 End stage renal disease; E11.65 Type 2 diabetes mellitus with hyperglycemia; E87.5 Hyperkalemia; N30.00 Acute cystitis without hematuria; N30.20 Other chronic cystitis without hematuria; J44.1 Chronic obstructive pulmonary disease with (acute) exacerbation; E87.1 Hypo-osmolality and hyponatremia; J98.11 Atelectasis; D63.1 Anemia in chronic kidney disease; J44.0 Chronic obstructive pulmonary disease with (acute) lower respiratory infection; Z03.818 Encounter for observation for suspected exposure to other biological agents ruled out; Z80.9 Family history of malignant neoplasm, unspecified; Z95.0 Presence of cardiac pacemaker; Z80.8 Family history of malignant neoplasm of other organs or systems; Z79.899 Other long term (current) drug therapy; Z79.82 Long term (current) use of aspirin; I50.33 Acute on chronic diastolic (congestive) heart failure
CPT/HCPCS: 36415; 70450; 71045; 71250; 71260; 72125; 74177; 78452; 80048; 80053; 81001; 82140; 82728; 82962; 83036; 83605; 83615; 83735; 83880; 84484; 85018; 85025; 85379; 85610; 85730; 86141; 87040; 87070; 87081; 87086; 87804; 87880; 90935; 93005; 93017; 93306; 93970; 94640; 96365; 96366; 96372; 96375; 97163; G0378; J0153; J0696; J1642; J1815; J1956; J2185; J3490

== ENCOUNTER 2020-04-07 11:42 | Inpatient (IN) | payer MEDICAID ==
[~2020-04-07] VITALS: Ht 175.3 cm; Wt 76.4 kg
[~2020-04-07 11:42] MED LIST changes: +ALBU0.084 NEB; +ALOG2.5T PO; +AMLO10TA13 PO; -AMLO5TAB15 PO; -ASPI-404 PO; +ASPI-543 PO; -GEMF600T7 PO; -METF-370 PO; -RANI150C11 PO
[2020-04-07] MEDS ORDERED: methylPREDNISolone SOD SUCC 125 MG/2 ML VL IV ONE (12:45)
[2020-04-07 13:09] LABS: Basophils # (auto) 0.1 10 ^3/uL (0-0.2); Basophils % (auto) 0.9 % (0.0-2.0); Eosinophils # (auto) 0.3 10 ^3/uL (0-0.8); Eosinophils % (auto) 4.5 % (0.0-7.0); Hematocrit 35.3 % (41.0-53.0); Hemoglobin 11.2 g/dL (13.5-17.5); Lymphocytes # (auto) 2.2 10 ^3/uL (0.4-5.4); Lymphocytes % (auto) 29.4 % (10.0-50.0); Mean Corpuscular Hemoglobin 27.7 pg (28.0-32.0); Mean Corpuscular Hgb Conc. 31.8 g/dL (32.0-36.0); Mean Corpuscular Volume 87.1 fL (80.0-100.0); Monocytes # (auto) 0.8 10 ^3/uL (0-1.3); Monocytes % (auto) 10.8 % (0.0-12.0); Neutrophils % (auto) 54.4 % (37.0-80.0); Nucleated Red Blood Cells % 0.1 %; Platelet Count (auto) 197 10^3/uL (140-450); Red Blood Cells 4.06 10^6/uL (4.5-5.90); Red Cell Distribution Width 18.5 % (11.8-14.3); White Blood Cell 7.4 10^3/uL (4.4-10.8)
[2020-04-07 13:24] LABS: Albumin 3.5 g/dL (3.4-5.0); Anion Gap 8 (5-15); Blood Urea Nitrogen 58 mg/dL (7-18); Calcium 8.8 mg/dL (8.5-10.1); Carbon Dioxide 28 mmol/L (21-32); Chloride 99 mmol/L (98-107); Glucose 129 mg/dL (74-106); Magnesium 2.4 mg/dL (1.6-2.6); Potassium 5.3 mmol/L (3.5-5.1); Sodium 135 mmol/L (136-145)
[2020-04-07 13:30] LABS: Alanine Aminotransferase 17 U/L (16-61); Alkaline Phosphatase 62 U/L (45-117); Aspartate Aminotransferase 8 U/L (15-37); BUN/Creatinine Ratio 14.6; Bilirubin, Total 0.5 mg/dL (0.2-1.0); CRP High Sensitivity 0.69 mg/dL (< 0.3); GFR African American 19 mL/min; GFR Non-African American 15 mL/min; Lactate Dehydrogenase 200 U/L (87-241); Total Protein 7.6 g/dL (6.4-8.2)
[2020-04-07 13:36] LABS: Lactic Acid w/Reflex 2.6 mmol/L (0.4-2.0)
[2020-04-07] MEDS ORDERED: ZINC SULFATE 220mg CAP or TAB PO ONE (14:00)
[2020-04-07] MEDS ORDERED: ASCORBIC ACID 500 MG TAB PO ONE (14:00)
[2020-04-07] MEDS ORDERED: PIPERACILLIN-TAZOB 3.375GM 100 ML IV ONE (14:15)
[2020-04-07] MEDS ORDERED: FUROSEMIDE 40 MG/4 ML VIAL IV ONE (14:15)
[2020-04-07] MEDS ORDERED: ACETAMINOPHEN 500 MG TAB PO PRN (15:00)
[2020-04-07] MEDS ORDERED: DEXTROSE (50%) 50ML SYRG IV PRN (15:00)
[2020-04-07] MEDS ORDERED: NITROGLYCERIN 0.4 MG SL TAB SL PRN (15:00)
[2020-04-07] MEDS ORDERED: MORPHINE SULF INJ 2 MG/ML SYRINGE 1ML IV PRN (15:00)
[2020-04-07] MEDS ORDERED: SODIUM ZIRCONIUM CYCL 10 GM PAK PO ONE (16:45)
[2020-04-07] MEDS: InsuLIN REG 1unit/0.01ml Soln (100units/ml) SC SCH (17:59)
[2020-04-07] MEDS: ACCU-CHEK COMFORT CURVE STRIP VI SCH (18:14)
[2020-04-07] MEDS: IPRATROPIUM BROM 0.5 MG/2.5ML INH SOL NEB SCH (19:32)
[2020-04-07] MEDS: ALBUTEROL SULF 2.5 MG/0.5ML(0.5%) NEB SOLN NEB SCH (19:32)
--- NOTE | 2020-04-07 20:06 | NUR ---
Telemetry admit from ER KEVIN BLANK admitted to Telemetry unit. Patient oriented to JADE DEWITT, primary RN, unit, room, bed, and unit policies regarding patient care and visiting hours. Patient now on continuous telemetry monitoring, tele box #39 and telemetry reading on arrival to unit is SR 64. Patient placed on bedside oxygen 2L NC, weighed by bedscale and encouraged to call if they need something. Walker at bedside, bed in lowest locked position, side rails up x2, call light within reach. All questions and concerns addressed, patient verbalized understanding.
[2020-04-07 20:20] VITALS: BP 128/65
[2020-04-07] MEDS: GABAPENTIN 300 MG CAP PO SCH (21:32)
[2020-04-07] MEDS: ATORVASTATIN 20 MG TAB PO SCH (21:32)
[2020-04-07] MEDS: DOXAZOSIN MESYL 2 MG TAB PO SCH (21:32)
[2020-04-07 22:00] VITALS: BP 128/65
[2020-04-08] MEDS: ACCU-CHEK COMFORT CURVE STRIP VI SCH ×4 (00:33→17:15)
[2020-04-08] MEDS: InsuLIN REG 1unit/0.01ml Soln (100units/ml) SC SCH ×4 (00:34→17:16)
[2020-04-08 04:25] VITALS: BP 128/65
[2020-04-08 05:00] VITALS: BP 132/61
[2020-04-08] MEDS: ALBUTEROL SULF 2.5 MG/0.5ML(0.5%) NEB SOLN NEB SCH ×3 (06:39→19:11)
[2020-04-08] MEDS: IPRATROPIUM BROM 0.5 MG/2.5ML INH SOL NEB SCH ×3 (06:39→19:10)
[2020-04-08] MEDS ORDERED: SODIUM CHL 0.9% 1000 ML BAG XX ONE (07:00)
[2020-04-08 07:02] LABS: Basophils # (auto) 0 10 ^3/uL (0-0.2); Basophils % (auto) 0.2 % (0.0-2.0); Eosinophils # (auto) 0 10 ^3/uL (0-0.8); Hematocrit 33.2 % (41.0-53.0); Hemoglobin 10.7 g/dL (13.5-17.5); Lymphocytes # (auto) 0.9 10 ^3/uL (0.4-5.4); Lymphocytes % (auto) 21.4 % (10.0-50.0); Mean Corpuscular Hemoglobin 27.9 pg (28.0-32.0); Mean Corpuscular Hgb Conc. 32.2 g/dL (32.0-36.0); Mean Corpuscular Volume 86.7 fL (80.0-100.0); Monocytes # (auto) 0.1 10 ^3/uL (0-1.3); Neutrophils # (auto) 3.1 10 ^3/uL (1.6-8.6); Neutrophils % (auto) 76.4 % (37.0-80.0); Platelet Count (auto) 166 10^3/uL (140-450); Red Blood Cells 3.83 10^6/uL (4.5-5.90); Red Cell Distribution Width 17.8 % (11.8-14.3)
[2020-04-08 07:19] LABS: BUN/Creatinine Ratio 16.3; Calcium 8.7 mg/dL (8.5-10.1)
--- NOTE | 2020-04-08 08:15 | NUR ---
Opening Shift Note Assumed care of patient, awake and alert. No S/S of distress/SOB or pain. Bed in lowest/locked position, bed rails upx2, call light within reach. Instructed on POC and to call for assist PRN. Will continue to monitor for changes Q1hr and PRN.
--- NOTE | 2020-04-08 08:20 | NUR ---
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 PER DWIGHT; SHE WOULD CONTACT HER COORDINATOR EVI TO ASSESS PATIENT'S SIGHT AND DWIGHT MADE DR DIAZ AWARE. WILL CONTINUE TO MONITOR
[2020-04-08 08:38] VITALS: BP 113/59
[2020-04-08] MEDS: PARoxetine 20 MG TAB PO SCH (09:01)
[2020-04-08] MEDS: FUROSEMIDE 40 MG TAB PO SCH (09:02)
[2020-04-08] MEDS: GABAPENTIN 300 MG CAP PO SCH ×2 (09:02→21:49)
[2020-04-08] MEDS: ASPirin 81 mg TAB PO SCH (09:02)
[2020-04-08] MEDS ORDERED: ASCORBIC ACID 500 MG TAB PO SCH (10:00)
[2020-04-08] MEDS ORDERED: ZINC SULFATE 220mg CAP or TAB PO SCH (10:00)
--- NOTE | 2020-04-08 10:20 | NUR ---
DIALYSIS HIGHWAY TRUCK DRIVEREVI ASSESSED PATIENT'S PALOMA FISTULA. PER EVI; SIGHT IS ACCESSIBLE WITH SMALLER GAUGE NEEDLE AND WILL INFORM HIGHWAY TRUCK DRIVERDWIGHT. PER EVI; PATIENT WILL BE ABLE TO BE DIALYZED TODAY. WILL CONTINUE TO MONITOR
--- NOTE | 2020-04-08 12:40 | NUR ---
DIALYSIS DIALYSIS RNs EVI & DWIGHT AT BEDSIDE. EVI ATTEMPTED ACCESSING PATIENT'S PALOMA FISTULA. 1/4 INCH SIZE CLOT WAS REMOVED WHILE EVI, RN ATTEMPTED TO ACCESS FISTULA. PER EVI; HE WILL NOTIFY MD DIAZ. PAGED DR WICK. AWAITING RETURN CALL
--- NOTE | 2020-04-08 12:55 | NUR ---
EMILY QUINTANILLA WATERWAY TRAFFIC CHECKER. DR DIAZ RECOMMENDS TO INFORM SHAMIKA AND CONSULT RADIOLOGY FOR TUNNELED CATHETER PLACEMENT. AWAITING RETURN CALL FROM SHAMIKA
[2020-04-08 13:01] VITALS: BP 121/52
--- NOTE | 2020-04-08 13:10 | NUR ---
MD CALL DR WICK RETURNED CALL RE: MD DIAZ'S RECOMMENDATIONS. NEW ORDERS RECEIVED/WILL CARRY OUT. WILL CONTINUE TO MONITOR
[2020-04-08 16:54] VITALS: BP 122/64
--- NOTE | 2020-04-08 19:34 | NUR ---
Opening Shift Note Assumed care of patient, awake and alert x 4. No S/S of distress/SOB. Bed is in lowest position and locked. Call light within reach. Board updated. Tele box number matches monitor and leads are intact. Instructed on POC and to call for assist PRN, will continue to monitor for changes Q1hr and PRN.
[2020-04-08] MEDS: ATORVASTATIN 20 MG TAB PO SCH (21:50)
[2020-04-08] MEDS: DOXAZOSIN MESYL 2 MG TAB PO SCH (21:51)
[2020-04-08 22:00] VITALS: BP 125/62
[2020-04-09] MEDS: ACCU-CHEK COMFORT CURVE STRIP VI SCH ×4 (00:32→18:46)
--- NOTE | 2020-04-09 00:32 | NUR ---
Paged hospitalist regarding positive blood culture (gram positive cocci in clusters). Patient has ESRD and his dialysis fistula is current malfunctioning. Patient is set to have hemodialysis catheter inserted in AM tomorrow. Patient is not currently receiving antibiotics. Vitals: BP: 125/62, HR: 74, O2 saturation: 97% on 2 l/min NC, Temp: 98.4.
--- NOTE | 2020-04-09 01:22 | NUR ---
Spoke to FLACO Amado and notified him of positive blood culture in previous note. Order received: Vancomycin per Pharmacy protocol.
[2020-04-09] MEDS ORDERED: VANCOMYCIN PER PHARMACY 0 MG IV SCH (01:30)
[2020-04-09] MEDS ORDERED: VANCOMYCIN 1GM/250ML 250 ML IV ONE (02:00)
[2020-04-09 05:00] VITALS: BP 97/78
[2020-04-09 05:29] LABS: Basophils # (auto) 0.1 10 ^3/uL (0-0.2); Basophils % (auto) 1.2 % (0.0-2.0); Eosinophils # (auto) 0 10 ^3/uL (0-0.8); Eosinophils % (auto) 0.7 % (0.0-7.0); Hematocrit 30.4 % (41.0-53.0); Hemoglobin 9.9 g/dL (13.5-17.5); Lymphocytes # (auto) 1.4 10 ^3/uL (0.4-5.4); Lymphocytes % (auto) 20.3 % (10.0-50.0); Mean Corpuscular Hemoglobin 28.4 pg (28.0-32.0); Mean Corpuscular Hgb Conc. 32.7 g/dL (32.0-36.0); Monocytes # (auto) 0.8 10 ^3/uL (0-1.3); Monocytes % (auto) 11.5 % (0.0-12.0); Neutrophils # (auto) 4.6 10 ^3/uL (1.6-8.6); Neutrophils % (auto) 66.3 % (37.0-80.0); Platelet Count (auto) 174 10^3/uL (140-450); Red Blood Cells 3.49 10^6/uL (4.5-5.90); White Blood Cell 6.9 10^3/uL (4.4-10.8)
[2020-04-09 05:43] LABS: INR 1.13 (0.9-1.15); Partial Thromboplastin Time 26.8 sec (23.64-32.05)
[2020-04-09 05:51] LABS: BUN/Creatinine Ratio 19.5; Calcium 8.2 mg/dL (8.5-10.1); Potassium 4.7 mmol/L (3.5-5.1)
[2020-04-09] MEDS: InsuLIN REG 1unit/0.01ml Soln (100units/ml) SC SCH ×4 (05:56→18:00)
[2020-04-09] MEDS: IPRATROPIUM BROM 0.5 MG/2.5ML INH SOL NEB SCH ×3 (07:12→19:01)
[2020-04-09] MEDS: ALBUTEROL SULF 2.5 MG/0.5ML(0.5%) NEB SOLN NEB SCH ×3 (07:12→19:00)
--- NOTE | 2020-04-09 07:21 | NUR ---
Endorsed critical BUN lab of 92 to day shift RN. After School Program Teacher, MD Navarro, and Dr. Hamilton are aware that patient is in ESRD and needs to be dialyzed. Prior BUN was 74 yesterday. Addendum: 04/09/20 at 0803 by JUAN STEINBERG RN Patient is set to have tunneled dialysis cath placement today.
[2020-04-09 08:00] VITALS: BP 103/48
--- NOTE | 2020-04-09 08:15 | NUR ---
Dialysis Nurse Jaren at bedside, will attempt to access the fistula on the right upper arm.
--- NOTE | 2020-04-09 08:40 | NUR ---
Received a call from garrison Urias ([phone]; Password "[email or web address]"). Garrison made aware the Dialysis Nurse unable to access the fistula on the right upper arm. Waiting for Radiology Nurse to come over.
--- NOTE | 2020-04-09 08:50 | NUR ---
Received a call from garment worker Disha that she will put the patient on schedule today for the tunnel cath insertion, let the patient have light breakfast. Dialysis Nurse Jaren is aware.
[2020-04-09 09:00] VITALS: BP 103/48
--- NOTE | 2020-04-09 09:36 | NUR ---
Dr. Hamilton at bedside. PATRICK Dean translated in Sammarinese. made aware base brander Disha called back earlier that she will schedule the patient for tunnel cath insertion today, let the patient have light breakfast, Dialysis Nurse Jaren on standby if the cath is inserted today for the dialysis.
[2020-04-09] MEDS: ASPirin 81 mg TAB PO SCH ×2 (10:00→10:48)
--- NOTE | 2020-04-09 10:00 | NUR ---
split leather department supervisor Tammy came over, speaking with Dr. Hamilton regarding declotting of fistula today.
--- NOTE | 2020-04-09 10:05 | NUR ---
As per Dr. Hamilton, patient can have the 1000 am medications.
--- NOTE | 2020-04-09 10:05 | NUR ---
Patient can have the 1000 am medications.
[2020-04-09] MEDS: FUROSEMIDE 40 MG TAB PO SCH (10:07)
[2020-04-09] MEDS: PARoxetine 20 MG TAB PO SCH (10:07)
[2020-04-09] MEDS: GABAPENTIN 300 MG CAP PO SCH ×2 (10:07→22:13)
--- NOTE | 2020-04-09 10:12 | NUR ---
About 250 ml of clear, yellowish urine emptied from the urinal.
--- NOTE | 2020-04-09 10:45 | NUR ---
Received a call back from wind site manager Tammy that patient will have the tunnel cath insertion later today, patient can have the Aspirin as ordered.
--- NOTE | 2020-04-09 10:55 | NUR ---
MAHESH Loyola at bedside. MAHESH North translated in Indonesian.
--- NOTE | 2020-04-09 12:10 | NUR ---
RT NOTE: PT. REFUSING BREATHING TX. AT THIS TIME. PT. WANTING TO BRUSH HIS TEETH AND USE RESTROOM. NO S/S OF SOB NOTED. WILL CONTINUE TO MONITOR.
[2020-04-09 12:48] VITALS: BP 107/57
--- NOTE | 2020-04-09 13:40 | NUR ---
Transferred patient via bed to Instructor Weaving. Patient awake, oriented x4, speaks Urdu only. IV line intact and patent. Patient refused to take off his pants. Explained to patient pants to be taken off before the procedure, Zander Powers translated in Urdu. Patient still refused. Endorsed patient to Instructor Weaving RN.
[2020-04-09] MEDS ORDERED: LIDOCAINE 2%HCL (LOCAL ANESTH.) INJ 20ML MDV ONE (14:11)
[2020-04-09] MEDS ORDERED: fentaNYL CITRATE 100 MCG/2 ML VL ONE (14:36)
[2020-04-09] MEDS ORDERED: MIDAZOLAM HCL 1MG/1ML-2 ML VIAL ONE (14:36)
[2020-04-09] MEDS ORDERED: IODIXANOL 320MG/ML 100ML BTL IV ONE (15:59)
[2020-04-09] MEDS ORDERED: HEPARIN SODIUM (PORCINE) 5000 UNITS/ML 1ML VIAL ONE (16:56)
--- NOTE | 2020-04-09 18:10 | NUR ---
Received report from Surgical Coordinator MAHESH Hankins that patient had angioplasty done on the right upper arm fistula, tunnel cath inserted, okay to use now for hemodialysis, patient to resume diet.
--- NOTE | 2020-04-09 18:30 | NUR ---
Patient back to room post tunnel cath insertion as per Dr. Azul. Dialysis Nurse Jaren at bedside. As per Dr. Azul's Communication Order, resume previous diet.
--- NOTE | 2020-04-09 19:00 | NUR ---
Respiratory note: SCHEDULED MED NEB TX NOT GIVEN. PT WAS EATING A SANDWICH WHILE HAVING DIALYSIS. NO RESP DISTRESS NOTED.
--- NOTE | 2020-04-09 19:28 | NUR ---
Opening Shift Note Assumed care of patient, awake and alert x 4. No S/S of distress/SOB or pain. Patient si currently receiving hemodialysis now. Dialysis nurse at bedside. Patient in no distress. Bed is in lowest position and locked. Call light within reach. Board updated. Instructed on POC and to call for assist PRN, will continue to monitor for changes Q1hr and PRN.
--- NOTE | 2020-04-09 21:15 | NUR ---
Hemodialysis completed. 2.1 liters removed. Vitals: BP: 101/53, HR: 69, RR: 18. Patient is alert and oriented x 4 and in no signs of distress at this time. Will continue to assess.
--- NOTE | 2020-04-09 21:36 | NUR ---
Spoke to patient's son and gave an update on condition after confirming password.
[2020-04-09 22:00] VITALS: BP 114/53
[2020-04-09] MEDS: ATORVASTATIN 20 MG TAB PO SCH (22:12)
[2020-04-09] MEDS: DOXAZOSIN MESYL 2 MG TAB PO SCH (22:13)
[2020-04-09] MEDS: traMADol HCL 50 MG TAB PO PRN (22:34)
[2020-04-10] MEDS: ACCU-CHEK COMFORT CURVE STRIP VI SCH ×5 (00:50→23:28)
[2020-04-10] MEDS: InsuLIN REG 1unit/0.01ml Soln (100units/ml) SC SCH ×5 (00:51→23:29)
[2020-04-10 05:00] VITALS: BP 107/58
[2020-04-10] MEDS: ALBUTEROL SULF 2.5 MG/0.5ML(0.5%) NEB SOLN NEB SCH ×3 (06:16→18:40)
[2020-04-10] MEDS: IPRATROPIUM BROM 0.5 MG/2.5ML INH SOL NEB SCH ×3 (06:17→18:40)
[2020-04-10 07:10] LABS: Basophils # (auto) 0.1 10 ^3/uL (0-0.2); Basophils % (auto) 1.1 % (0.0-2.0); Eosinophils # (auto) 0.2 10 ^3/uL (0-0.8); Eosinophils % (auto) 2.8 % (0.0-7.0); Hematocrit 33.2 % (41.0-53.0); Hemoglobin 10.6 g/dL (13.5-17.5); Lymphocytes # (auto) 2.1 10 ^3/uL (0.4-5.4); Lymphocytes % (auto) 26.1 % (10.0-50.0); Mean Corpuscular Volume 87.5 fL (80.0-100.0); Monocytes # (auto) 0.9 10 ^3/uL (0-1.3); Neutrophils # (auto) 4.7 10 ^3/uL (1.6-8.6); Platelet Count (auto) 172 10^3/uL (140-450); Red Cell Distribution Width 18.1 % (11.8-14.3)
[2020-04-10 07:35] LABS: Potassium 4.2 mmol/L (3.5-5.1)
[2020-04-10 07:40] LABS: BUN/Creatinine Ratio 15.5; Calcium 7.9 mg/dL (8.5-10.1)
--- NOTE | 2020-04-10 08:00 | NUR ---
Opening Shift Note Assumed care of patient, awake and alert. No S/S of distress/SOB or pain. Instructed on POC and to call for assist PRN, will continue to monitor for changes Q1hr and PRN.
[2020-04-10 09:00] VITALS: BP 110/55
[2020-04-10] MEDS ORDERED: VANCOMYCIN PER PHARMACY 0 MG IV SCH (10:00)
[2020-04-10] MEDS: GABAPENTIN 300 MG CAP PO SCH ×2 (10:26→21:58)
[2020-04-10] MEDS: FUROSEMIDE 40 MG TAB PO SCH (10:27)
[2020-04-10] MEDS: ASPirin 81 mg TAB PO SCH (10:27)
[2020-04-10] MEDS: PARoxetine 20 MG TAB PO SCH (10:27)
[2020-04-10] MEDS ORDERED: VANCOMYCIN 1GM/250ML 250 ML IV ONE (11:00)
[2020-04-10 12:50] VITALS: BP 116/59
--- NOTE | 2020-04-10 14:42 | NUR ---
Nutrition Assessment Notes please see attached link for complete assessment Est Energy needs BW 78 k-2106kcals (25-27 kcal/kgBW), Est Protein needs: 93-101 gms/day (1.2-1.3 gm/kgBW r/t HD). Will continue to monitor and reassess prn. Addendum: 04/10/20 at 1444 by Ann-Marie Naranjo RD Amended: Links added.
[2020-04-10 17:00] VITALS: BP 108/51
--- NOTE | 2020-04-10 19:35 | NUR ---
Opening Shift Note Assumed care of patient, awake and alert x4. No S/S of distress/SOB or pain. Call light is within reach, side rails up x2, bed is in the lowest position, fall precautions are in place. Instructed on POC and to call for assist PRN, will continue to monitor for changes Q1hr and PRN.
[2020-04-10 20:00] VITALS: BP 117/61
[2020-04-10] MEDS: DOXAZOSIN MESYL 2 MG TAB PO SCH (21:57)
[2020-04-10] MEDS: ATORVASTATIN 20 MG TAB PO SCH (21:57)
[2020-04-10 22:00] VITALS: BP 117/61
--- NOTE | 2020-04-10 22:00 | NUR ---
paged hospitalist pt. requesting sleeping aid states he takes sleeping medication at home
--- NOTE | 2020-04-10 22:04 | NUR ---
Dr. Miranda called back received order for ambien 5mg po qhs prn. See emar will carry out.
[2020-04-10] MEDS: ZOLPIDEM TARTRATE 5 MG TAB PO PRN (23:21)
[2020-04-11 03:07] VITALS: BP 117/61
[2020-04-11 05:00] VITALS: BP 112/65
--- NOTE | 2020-04-11 05:27 | NUR ---
Solitario from [facility] called, patient is scheduled for Hemodialysis this morning and she will be here within the hour.
[2020-04-11] MEDS: ACCU-CHEK COMFORT CURVE STRIP VI SCH ×4 (05:56→23:57)
[2020-04-11] MEDS: InsuLIN REG 1unit/0.01ml Soln (100units/ml) SC SCH ×4 (05:56→23:57)
[2020-04-11] MEDS: IPRATROPIUM BROM 0.5 MG/2.5ML INH SOL NEB SCH ×3 (06:00→18:30)
[2020-04-11] MEDS: ALBUTEROL SULF 2.5 MG/0.5ML(0.5%) NEB SOLN NEB SCH ×3 (06:00→18:30)
--- NOTE | 2020-04-11 06:03 | NUR ---
RT NOTE: PT REFUSED TX AT THIS TIME. NO SIGNS OF RESPIRATORY DISTRESS. GEOGRAPHIC INFORMATION SCIENTIST IS BEDSIDE PREPARING FOR TX. PT AWARE THAT I WILL RETURN FOR NEXT TX. WILL CONTINUE TO MONITOR. Addendum: 04/11/20 at 0757 by BHANU QUINTEROS RT RT ON 2L NC SPO2 96 HR 67 RR 16
[2020-04-11] MEDS ORDERED: SODIUM CHL 0.9% 1000 ML BAG XX ONE (06:30)
[2020-04-11 06:39] LABS: Basophils # (auto) 0.1 10 ^3/uL (0-0.2); Basophils % (auto) 0.8 % (0.0-2.0); Eosinophils # (auto) 0.3 10 ^3/uL (0-0.8); Hematocrit 31.2 % (41.0-53.0); Hemoglobin 10.2 g/dL (13.5-17.5); Lymphocytes # (auto) 1.5 10 ^3/uL (0.4-5.4); Lymphocytes % (auto) 21.4 % (10.0-50.0); Mean Corpuscular Hemoglobin 28.4 pg (28.0-32.0); Mean Corpuscular Hgb Conc. 32.7 g/dL (32.0-36.0); Mean Corpuscular Volume 86.9 fL (80.0-100.0); Monocytes # (auto) 0.8 10 ^3/uL (0-1.3); Monocytes % (auto) 11.5 % (0.0-12.0); Neutrophils # (auto) 4.5 10 ^3/uL (1.6-8.6); Neutrophils % (auto) 62.3 % (37.0-80.0); Platelet Count (auto) 167 10^3/uL (140-450); Red Blood Cells 3.59 10^6/uL (4.5-5.90); Red Cell Distribution Width 18.2 % (11.8-14.3); White Blood Cell 7.2 10^3/uL (4.4-10.8)
[2020-04-11 07:00] LABS: Calcium 7.7 mg/dL (8.5-10.1)
[2020-04-11 07:03] LABS: BUN/Creatinine Ratio 17.2
--- NOTE | 2020-04-11 07:30 | NUR ---
Opening Note Received report from maintenance mechanic 2nd shift RN. Patient is awake, alert and oriented. Patient is on 2L NC, respirations even and unlabored. Dialysis in process, RN at bedside. Bed in low and locked position, call light within reach. Will continue to monitor Q1 hour and PRN.
[2020-04-11 09:04] VITALS: BP 114/55
--- NOTE | 2020-04-11 09:40 | NUR ---
Dialysis complete Per munitions handler supervisor 3L removed. Patient tolerated. Will continue to monitor Q1 hour and PRN.
[2020-04-11] MEDS: GABAPENTIN 300 MG CAP PO SCH ×2 (09:48→23:55)
[2020-04-11] MEDS: PARoxetine 20 MG TAB PO SCH (09:48)
[2020-04-11] MEDS: FUROSEMIDE 40 MG TAB PO SCH (09:49)
[2020-04-11] MEDS: ASPirin 81 mg TAB PO SCH (09:49)
--- NOTE | 2020-04-11 11:48 | NUR ---
Dr. Ellis at bedside Discussing plan of care with patient and this RN. New orders received. Will continue to monitor Q1 hour and PRN.
[2020-04-11 12:55] VITALS: BP 137/61
[2020-04-11] MEDS ORDERED: VANCOMYCIN 1GM/250ML 250 ML IV ONE (13:00)
--- NOTE | 2020-04-11 15:02 | NUR ---
Ultra sound tech at bedside
--- NOTE | 2020-04-11 15:36 | NUR ---
Paged Dr. Ellis Call from radiologist with ultra sound results, patient is positive for thrombosis in the right upper extremity. MD updated. Awaiting new orders. Will continue to monitor Q1 hour and PRN.
[2020-04-11 17:00] VITALS: BP 125/60
--- NOTE | 2020-04-11 19:26 | NUR ---
Closing note Report given to night clerk auditor RN. No signs or symptoms of distress noted at this time.
--- NOTE | 2020-04-11 19:35 | NUR ---
Opening Shift Note Pt is sitting up in bedside chair. No s/s of any distress noted at this time. Pt denies any pain or discomfort at this time. Will continue to monitor q1hr.
[2020-04-11 21:39] VITALS: BP 89/48
[2020-04-11] MEDS: DOXAZOSIN MESYL 2 MG TAB PO SCH (22:00)
[2020-04-11] MEDS: ATORVASTATIN 20 MG TAB PO SCH (23:55)
[2020-04-12 05:00] VITALS: BP 111/56
[2020-04-12] MEDS: ALBUTEROL SULF 2.5 MG/0.5ML(0.5%) NEB SOLN NEB SCH ×3 (05:44→18:17)
[2020-04-12] MEDS: IPRATROPIUM BROM 0.5 MG/2.5ML INH SOL NEB SCH ×3 (05:44→18:17)
[2020-04-12] MEDS: InsuLIN REG 1unit/0.01ml Soln (100units/ml) SC SCH ×4 (06:00→22:55)
[2020-04-12] MEDS: ACCU-CHEK COMFORT CURVE STRIP VI SCH ×4 (06:00→22:55)
--- NOTE | 2020-04-12 07:36 | NUR ---
Opening Note Received report from mold shifter RN. Patient is resting in bed with eyes closed, easy to wake by calling name. No signs or symptoms of distress noted at this time. Patient is on 2L NC, respirations even and unlabored. Bed in low and locked position, call light within reach. Will continue to monitor Q1 hour and PRN.
[2020-04-12 08:51] VITALS: BP 116/51
[2020-04-12] MEDS: PARoxetine 20 MG TAB PO SCH (09:17)
[2020-04-12] MEDS: GABAPENTIN 300 MG CAP PO SCH ×2 (09:17→22:54)
[2020-04-12] MEDS: ASPirin 81 mg TAB PO SCH (09:17)
[2020-04-12] MEDS: FUROSEMIDE 40 MG TAB PO SCH (09:18)
[2020-04-12] MEDS ORDERED: ENOXAPARIN SOD 80 MG/0.8ML SYRINGE SC ONE (10:15)
--- NOTE | 2020-04-12 11:14 | NUR ---
Dr. Ellis at bedside Discussing plan of care with patient and this RN. All questions and concerns addressed. Will continue to monitor Q1 hour and PRN.
[2020-04-12 13:00] VITALS: BP 91/49
[2020-04-12 16:54] VITALS: BP 122/53
--- NOTE | 2020-04-12 19:05 | NUR ---
Closing Note Report given to nightman RN. No signs or symptoms of distress.
--- NOTE | 2020-04-12 19:20 | NUR ---
Opening shift note Assumed care of patient who is sitting up in the bedside chair reading, A&Ox4, respirations even and non-labored with no s/s of distress. IV patent and saline locked at this time. Urinal bedside. Bed in lowest locked position with 2 side rails up. Patient has call light within reach. Will continue to monitor.
[2020-04-12 21:56] VITALS: BP 95/59
[2020-04-12] MEDS ORDERED: ENOXAPARIN SOD 80 MG/0.8ML SYRINGE SC SCH (22:00)
[2020-04-12] MEDS: DOXAZOSIN MESYL 2 MG TAB PO SCH (22:00)
[2020-04-12] MEDS: ATORVASTATIN 20 MG TAB PO SCH (22:54)
[2020-04-13 04:56] VITALS: BP 121/59
[2020-04-13] MEDS: IPRATROPIUM BROM 0.5 MG/2.5ML INH SOL NEB SCH ×3 (05:18→19:05)
[2020-04-13] MEDS: ALBUTEROL SULF 2.5 MG/0.5ML(0.5%) NEB SOLN NEB SCH ×3 (05:18→19:05)
[2020-04-13] MEDS ORDERED: SODIUM CHL 0.9% 1000 ML BAG XX ONE (07:00)
--- NOTE | 2020-04-13 07:37 | NUR ---
Closing shift note Patient resting without s/s of distress. Endorsed care to day shift RN.
[2020-04-13 08:26] VITALS: BP 109/44
--- NOTE | 2020-04-13 09:59 | NUR ---
SOCIAL SERVICE CONSULT MATTRESS RENOVATOR SPOKE WITH PT'S GRANDSON TOPHER [phone] TO OBTAIN COLLATERAL INFORMATION FOR INITIAL ASSESSMENT. PT IS A 89 YR OLD CROATIAN SPEAKING MALE ADMITTED FOR PNA. HE HAS A HX OF DM, ESRCD ON DIALYSIS WITH [facility] IN [place], PACEMAKER, CHF, COPD. PT AMBULATES WITH A FWW, HE ALSO HAS A WHEELCHAIR, SHOWER CHAIR AT HOME. PT RESIDES WITH TOPHER, PT'S DAUGHTER VANESSA, SON IN LAW AND ANOTHER SON. FAMILY IS ATTENTIVE AND SUPPORTIVE THEY PROVIDE ACCOUNT MANAGER SALES REPRESENTATIVE CARE. PT'S PCP IS DR. RUSSELL. PT HAS AN AHCD ON FILE. MATTRESS RENOVATOR CONFERRED WITH [facility]ENIC JE[facility]APTISTE, TENTATIVE DC PLAN IS FOR PT TO RETURN HOME WITH PT ON HOME HEALTH. NO OTHER SS NEEDS IDENTIFIED. SS TO REMAIN AVAILABLE NEEDED. Addendum: 04/13/20 at 1004 by BRIAN VIDES SS Amended: Links added.
[2020-04-13] MEDS ORDERED: ENOXAPARIN SOD 100 MG/1 ML SYRINGE SC SCH (10:00)
[2020-04-13] MEDS: GABAPENTIN 300 MG CAP PO SCH ×2 (12:27→21:47)
[2020-04-13] MEDS: PARoxetine 20 MG TAB PO SCH (12:28)
[2020-04-13] MEDS: InsuLIN REG 1unit/0.01ml Soln (100units/ml) SC SCH ×4 (12:31→23:18)
[2020-04-13 12:36] VITALS: BP 119/60
--- NOTE | 2020-04-13 12:50 | NUR ---
HEMODIALYSIS DONE WITH 2L OUTPUT BP 140/67MMHG, HR 65.
[2020-04-13 13:24] LABS: Urine Bacteria MOD /hpf (None Seen); Urine Blood 3+ /uL (Negative); Urine Budding Yeast FEW /hpf (None Seen); Urine WBC 227 /hpf (0 - 3); Urine WBC Clumps PRESENT /hpf (None Seen)
[2020-04-13] MEDS: ACCU-CHEK COMFORT CURVE STRIP VI SCH ×3 (13:59→23:14)
--- NOTE | 2020-04-13 14:37 | NUR ---
Nutrition Followup Note Wt 75.6kg Pt was with care team at time of rounds. Pt has inadequate oral intake x 2 days aeb pt with avg po intake of 55% per RN nutrition doc. Pt last dialysis 04/11 per RN note Est Energy needs BW 78 k-2106kcals (25-27 kcal/kgBW), Est Protein needs: 93-101 gms/day (1.2-1.3 gm/kgBW r/t HD). Will continue to monitor and reassess prn. Labs: BUN 73H, Creat 4.24H, Ca 7.7L, Alb 3.5WNL BM: 1 BM 04/13 per RN doc Skin: BS 18 mod risk, full details in healthcare architect doc. PES: Altered nutrition related lab values r.t current chronic medical condition aeb elev RFT hypercapnia, hypocalcemia Comments 1) consider CCHO 60 gm renal std cardiac diet 2) refer to CDE on DC 3) continue current plan of care Expected Outcomes/Goals: pt will have improved labs F/u mod 3-5 days
--- NOTE | 2020-04-13 14:37 | NUR ---
PAGED DR. WICK RE: URINALYSIS RESULT
--- NOTE | 2020-04-13 15:00 | NUR ---
DR. WICK CALLED BACK MADE AWARE URINALYSIS RESULT IS BACK, POSITIVE FOR UTI AND 3+ BLOOD, RECEIVED ORDER NOT TO GIVE ELIQUIS TODAY AND START TOMORROW, START ROCEPHIN 1 GRAM IVPB NOW AND DAILY, ORDER READ BACK AND VERIFIED.
[2020-04-13] MEDS ORDERED: cefTRIAXone 1GM/50ML D5W 50 ML IV ONE (15:15)
[2020-04-13 16:45] VITALS: BP 130/57
[2020-04-13] MEDS: traMADol HCL 50 MG TAB PO PRN (18:40)
--- NOTE | 2020-04-13 19:20 | NUR ---
Opening shift note Assumed care of patient who is sitting up at a bedside chair A&Ox4. Respirations are even and non-labored and no s/s of distress. Discussed POC with patient who verbalized understanding. Bed in lowest locked position with 2 side rails up. Urinal bedside, call light within reach. Will continue to monitor.
[2020-04-13] MEDS ORDERED: EPOETIN ALFA 4,000 UNIT/ML VL SC ONE (21:00)
[2020-04-13] MEDS: DOXAZOSIN MESYL 2 MG TAB PO SCH (21:45)
[2020-04-13] MEDS: ATORVASTATIN 20 MG TAB PO SCH (21:47)
[2020-04-13 22:00] VITALS: BP 120/43
[2020-04-13] MEDS ORDERED: APIXABAN 2.5 MG TAB PO SCH (22:00)
--- NOTE | 2020-04-13 23:28 | NUR ---
IV insertion IV access obtained, via clean sterile technique by inserting 20 gauge catheter at left FA after 2 attempts. IV secured properly. No trauma to site. Patient tolerated well.
[2020-04-13] MEDS: ZOLPIDEM TARTRATE 5 MG TAB PO PRN (23:55)
[2020-04-14 03:03] VITALS: BP 120/43
[2020-04-14 05:00] VITALS: BP 122/49
[2020-04-14] MEDS: IPRATROPIUM BROM 0.5 MG/2.5ML INH SOL NEB SCH ×3 (05:32→18:26)
[2020-04-14] MEDS: ALBUTEROL SULF 2.5 MG/0.5ML(0.5%) NEB SOLN NEB SCH ×3 (05:32→18:26)
[2020-04-14] MEDS: InsuLIN REG 1unit/0.01ml Soln (100units/ml) SC SCH ×3 (06:00→18:00)
[2020-04-14] MEDS: ACCU-CHEK COMFORT CURVE STRIP VI SCH ×3 (06:49→18:05)
--- NOTE | 2020-04-14 07:00 | NUR ---
Opening Shift Note Received report on the patient. Awake lying in bed. Patient shows no signs of distress at this time. Discussed the plan of care with the patient. Bed in lowest position, side rails up x2, and the call light is within reach.
--- NOTE | 2020-04-14 07:20 | NUR ---
Closing shift note Patient awake, sitting up in bed with no s/s of distress. Endorsed care to day shift RN.
[2020-04-14 09:04] VITALS: BP 124/58
[2020-04-14] MEDS: cefTRIAXone 1GM/50ML D5W 50 ML IV SCH (09:07)
[2020-04-14] MEDS: GABAPENTIN 300 MG CAP PO SCH ×2 (09:08→22:14)
[2020-04-14] MEDS: PARoxetine 20 MG TAB PO SCH (09:08)
[2020-04-14 13:46] VITALS: BP 147/68
[2020-04-14 16:11] VITALS: BP 132/57
--- NOTE | 2020-04-14 18:39 | NUR ---
Dr Navarro called and questioned why the patient is not being discharged. Informed Dr Navarro of the plan of care. Dr Navarro that he would call Dr Guerrier and have the patient discharged.
--- NOTE | 2020-04-14 19:55 | NUR ---
URINAL EMPTIED 200ML DARK MICHELLE URINE NOTED IN URINAL.
--- NOTE | 2020-04-14 19:56 | NUR ---
PATIENT SITTING UP AT BEDSIDE IN CHAIR WITH NO S/S OF DISTRESS NOTED. PATIENT ON 02 AT 2LNC WITH NO RESPIRATORY DISTRESS NOTED. PATIENT IS ENGLISH SPEAKING, PLAN OF CARE TRANSLATED TO PATIENT VIA STAFF, ALL QUESTIONS AND CONCERNS ADDRESSED. NEW GOWN PROVIDED TO PATIENT REQUESTED. PATIENT WISHES TO STAY SITTING IN CHAIR AT THIS TIME, WISHES TO RETURN TO BED AT A LATER TIME. DIALYSIS CATH SITE TO RIGHT UPPER CHEST IS BENIGN, NO S/S OF BLEEDING NOTED. DRESSING TO RIGHT UPPER ARM C/D/I. NO BLEEDING NOTED.
[2020-04-14 22:00] VITALS: BP 123/46
[2020-04-14] MEDS: DOXAZOSIN MESYL 2 MG TAB PO SCH (22:00)
[2020-04-14] MEDS: ATORVASTATIN 20 MG TAB PO SCH (22:14)
[2020-04-15] MEDS: DOXAZOSIN MESYL 2 MG TAB PO SCH ×2 (00:33→22:20)
[2020-04-15] MEDS: ACCU-CHEK COMFORT CURVE STRIP VI SCH ×4 (00:33→17:36)
[2020-04-15] MEDS: InsuLIN REG 1unit/0.01ml Soln (100units/ml) SC SCH ×4 (00:47→17:36)
[2020-04-15 04:56] VITALS: BP 99/37
[2020-04-15 05:46] VITALS: BP 100/54
[2020-04-15 05:48] LABS: Basophils # (auto) 0.1 10 ^3/uL (0-0.2); Eosinophils # (auto) 0.4 10 ^3/uL (0-0.8); Eosinophils % (auto) 5.5 % (0.0-7.0); Hematocrit 31.9 % (41.0-53.0); Hemoglobin 10.4 g/dL (13.5-17.5); Lymphocytes % (auto) 26.6 % (10.0-50.0); Mean Corpuscular Hemoglobin 28.2 pg (28.0-32.0); Mean Corpuscular Hgb Conc. 32.5 g/dL (32.0-36.0); Mean Corpuscular Volume 86.7 fL (80.0-100.0); Monocytes # (auto) 0.9 10 ^3/uL (0-1.3); Monocytes % (auto) 11.8 % (0.0-12.0); Neutrophils # (auto) 4.2 10 ^3/uL (1.6-8.6); Neutrophils % (auto) 55.1 % (37.0-80.0); Nucleated Red Blood Cells % 0.1 %; Platelet Count (auto) 148 10^3/uL (140-450); Red Blood Cells 3.68 10^6/uL (4.5-5.90); Red Cell Distribution Width 17.5 % (11.8-14.3); White Blood Cell 7.5 10^3/uL (4.4-10.8)
[2020-04-15 05:50] LABS: BUN/Creatinine Ratio 15.7; Calcium 8.3 mg/dL (8.5-10.1); Potassium 5.2 mmol/L (3.5-5.1)
--- NOTE | 2020-04-15 06:21 | NUR ---
DIALYSIS NURSE AT BEDSIDE
[2020-04-15] MEDS ORDERED: SODIUM CHL 0.9% 1000 ML BAG XX ONE (06:30)
[2020-04-15] MEDS: IPRATROPIUM BROM 0.5 MG/2.5ML INH SOL NEB SCH ×3 (07:30→18:16)
[2020-04-15] MEDS: ALBUTEROL SULF 2.5 MG/0.5ML(0.5%) NEB SOLN NEB SCH ×3 (07:30→18:16)
--- NOTE | 2020-04-15 07:30 | NUR ---
Respiratory note: PT DID NOT WANT MEDNEB TX AT THIS TIME BECAUSE CURRENTLY ON DIALYSIS. RESTING IN BED, NO S/S OF RESPIRATORY DISTRESS NOTED. DIALYSIS NURSE AT BEDSIDE. WILL RETURN FOR NEXT SCHEDULED TX.
--- NOTE | 2020-04-15 07:40 | NUR ---
Opening Note Assumed pt care from NOC RN. Pt is a/ox4 with no s/s of distress or SOB. Pt is currently laying in bed with no complaints at this time. Dialysis nurse is currently at bedside for treatment. Discussed POC with pt; pt is still refusing knapp at this time. Safety measures maintained with call light within reach, bed in lowest position and side rails up. Will continue to monitor.
[2020-04-15] MEDS: PARoxetine 20 MG TAB PO SCH (08:41)
[2020-04-15] MEDS: cefTRIAXone 1GM/50ML D5W 50 ML IV SCH (08:41)
[2020-04-15] MEDS: GABAPENTIN 300 MG CAP PO SCH ×2 (08:41→22:20)
[2020-04-15] MEDS: traMADol HCL 50 MG TAB PO PRN (08:41)
[2020-04-15 09:00] VITALS: BP 125/62
--- NOTE | 2020-04-15 09:10 | NUR ---
Dialysis Complete Per RN, 2L removed. Last Bp is 123/58 with a HR of 64. RN stated that he tolerated treatment well. Will continue to monitor.
--- NOTE | 2020-04-15 10:16 | NUR ---
Dr Hamilton at Bedside MD to see pt. Discussed POC. Requests that we check pt's urine. Will continue to monitor.
--- NOTE | 2020-04-15 12:06 | NUR ---
Urine Pt able to produce 50mL of urine in urinal. Dark in color, mild hematuria noted. Will place knapp catheter after lunch per pt's request. No pain to abdomen at this time. Will continue to monitor.
[2020-04-15 13:00] VITALS: BP 138/51
--- NOTE | 2020-04-15 15:00 | NUR ---
Knapp Catheter Attempt to place knapp catheter. With the help of Zhanna ARAGON, translating, pt states that he does not really wish to have the catheter placed. Per the patient, he has had a catheter at one time to which resulted in him not "being able to void right since". Discussed purpose of insertion of catheter, pt stated that if the MD requests the placement, he will do it. Requested that we place it later this evening. At this time, pt has been able to void in urinal, 300mL Dark/reddish emir urine present. No pain associated with urinating per pt. Will continue to monitor and place catheter.
--- NOTE | 2020-04-15 16:29 | NUR ---
Insertion of Knapp Catheter; ROSALIA Davis at Bedside 18F knapp placed using sterile technique. Pt tolerated well. Upon insertion, 175mL of yellow tinged/cloudy urine drained. Minimal hematuria present. ROSALIA Davis at bedside post insertion. Per her, pt will most likely go home with the knapp and see Dr Rutledge as out pt. Pt requesting leg bag. Will educate pt and provide leg bag post initial drainage. Will continue to monitor.
[2020-04-15 17:00] VITALS: BP 93/63
[2020-04-15] MEDS ORDERED: EPOETIN ALFA 4,000 UNIT/ML VL SC ONE (21:00)
[2020-04-15] MEDS ORDERED: EPOETIN ALFA 10,000 UNIT/1 ML VIAL SC ONE (21:00)
[2020-04-15] MEDS: ATORVASTATIN 20 MG TAB PO SCH (22:20)
[2020-04-15] MEDS: ZOLPIDEM TARTRATE 5 MG TAB PO PRN (22:24)
[2020-04-16] MEDS: ACCU-CHEK COMFORT CURVE STRIP VI SCH ×5 (00:19→23:59)
[2020-04-16] MEDS: InsuLIN REG 1unit/0.01ml Soln (100units/ml) SC SCH ×4 (00:20→17:24)
[2020-04-16 05:00] VITALS: BP 110/60
[2020-04-16 05:39] LABS: Basophils # (auto) 0 10 ^3/uL (0-0.2); Basophils % (auto) 0.7 % (0.0-2.0); Eosinophils # (auto) 0.4 10 ^3/uL (0-0.8); Eosinophils % (auto) 6.2 % (0.0-7.0); Hematocrit 32.2 % (41.0-53.0); Hemoglobin 10.7 g/dL (13.5-17.5); Lymphocytes # (auto) 1.4 10 ^3/uL (0.4-5.4); Lymphocytes % (auto) 23.8 % (10.0-50.0); Mean Corpuscular Hemoglobin 28.7 pg (28.0-32.0); Mean Corpuscular Hgb Conc. 33.1 g/dL (32.0-36.0); Mean Corpuscular Volume 86.8 fL (80.0-100.0); Monocytes # (auto) 0.8 10 ^3/uL (0-1.3); Monocytes % (auto) 13.2 % (0.0-12.0); Neutrophils # (auto) 3.4 10 ^3/uL (1.6-8.6); Neutrophils % (auto) 56.1 % (37.0-80.0); Platelet Count (auto) 122 10^3/uL (140-450); Red Blood Cells 3.71 10^6/uL (4.5-5.90); Red Cell Distribution Width 17.8 % (11.8-14.3)
[2020-04-16 05:41] LABS: Calcium 8.3 mg/dL (8.5-10.1); Potassium 5.1 mmol/L (3.5-5.1)
[2020-04-16] MEDS: IPRATROPIUM BROM 0.5 MG/2.5ML INH SOL NEB SCH ×2 (05:53→18:12)
[2020-04-16] MEDS: ALBUTEROL SULF 2.5 MG/0.5ML(0.5%) NEB SOLN NEB SCH ×2 (05:53→18:12)
--- NOTE | 2020-04-16 07:30 | NUR ---
Opening Note Assumed pt care from NOC RN. Pt is a/ox4 with no s/s of distress or SOB. Pt is currently sitting upright in bed with no complaints at this time. Woody catheter is present, free of kinks and draining to gravity. Mild hematuria notes in bag. No pain to abdomen as stated by pt. Discussed POC with pt, pt verbalized understanding. Safety measures maintained with call light within reach, bed in lowest position and side rails up. Will continue to monitor.
[2020-04-16 09:00] VITALS: BP 126/60
[2020-04-16] MEDS: PARoxetine 20 MG TAB PO SCH (09:05)
[2020-04-16] MEDS: cefTRIAXone 1GM/50ML D5W 50 ML IV SCH (09:05)
[2020-04-16] MEDS: GABAPENTIN 300 MG CAP PO SCH ×2 (09:05→23:04)
--- NOTE | 2020-04-16 09:40 | NUR ---
Dr Hamilton at Bedside MD to see pt. Plans to d/c pt home tomorrow. Will implement and continue to monitor.
[2020-04-16] MEDS: APIXABAN 2.5 MG TAB PO SCH ×2 (11:40→23:04)
--- NOTE | 2020-04-16 11:47 | NUR ---
Walked Prescription to [facility] Walked RX to pharm to be filled.
--- NOTE | 2020-04-16 12:54 | NUR ---
Updated Pt's Family on Status Updated pt on status of pt and POC, spoke to Adonay. Family is aware for plans for d/c tomorrow. All questions were answered.
[2020-04-16 13:00] VITALS: BP 131/68
--- NOTE | 2020-04-16 13:49 | NUR ---
D/C planning Per SS consult for home health for physical therapy and knapp care. Faxed clinical information to [facility]. Per Veronika with [facility] [phone] patient has been accepted and service to start within 24-48hrs upon d/c day.
--- NOTE | 2020-04-16 13:58 | NUR ---
Faxed clinical information to [facility] requesting authorization for [facility]. [id number].
--- NOTE | 2020-04-16 15:34 | NUR ---
Prescriptions for D/C RX picked up from Pharmacy. Placed in med room. Will notify NOC RN for d/c plan tomorrow.
[2020-04-16 17:00] VITALS: BP 137/64
[2020-04-16 22:00] VITALS: BP 124/37
[2020-04-16] MEDS: DOXAZOSIN MESYL 2 MG TAB PO SCH (23:04)
[2020-04-16] MEDS: ATORVASTATIN 20 MG TAB PO SCH (23:04)
[2020-04-16] MEDS: ZOLPIDEM TARTRATE 5 MG TAB PO PRN (23:08)
[2020-04-17 04:17] VITALS: BP 124/37
[2020-04-17 05:43] VITALS: BP 90/37
[2020-04-17] MEDS: InsuLIN REG 1unit/0.01ml Soln (100units/ml) SC SCH ×3 (06:00→12:19)
[2020-04-17] MEDS: ACCU-CHEK COMFORT CURVE STRIP VI SCH ×2 (06:08→12:09)
[2020-04-17] MEDS ORDERED: SODIUM CHL 0.9% 1000 ML BAG XX ONE (06:15)
[2020-04-17] MEDS ORDERED: HEPARIN 1,000 UNITS/ml 1ML VIAL IV ONE (06:15)
--- NOTE | 2020-04-17 07:10 | NUR ---
OPENING SHIFT NOTE ASSUMED CARE OF PATIENT FROM ACCOUNTING AUDITOR RN ELAN. PATIENT IS AWAKE AND ALERT X4. PATIENT HAS NO S/S OF DISTRESS/SOB OR PAIN. INSTRUCTED PATIENT ON POC, PATIENT VERBALIZED UNDERSTANDING. DIALYSIS BEING DONE AT THIS TIME. BED IS IN LOWEST POSITION WITH SIDE RAILS RAISED X2, BED WHEELS LOCKED, MIRANDA IS HANGING BELOW BLADDER AND IS DRAINING YELLOW URINE, AND CALL LIGHT IS WITHIN REACH. WILL CONTINUE TO MONITOR.
[2020-04-17] MEDS: IPRATROPIUM BROM 0.5 MG/2.5ML INH SOL NEB SCH ×2 (08:00→12:22)
[2020-04-17] MEDS: ALBUTEROL SULF 2.5 MG/0.5ML(0.5%) NEB SOLN NEB SCH ×2 (08:00→12:22)
[2020-04-17 08:15] VITALS: BP 111/55
[2020-04-17 09:00] VITALS: BP 111/55
[2020-04-17] MEDS: PARoxetine 20 MG TAB PO SCH (10:00)
[2020-04-17] MEDS: APIXABAN 2.5 MG TAB PO SCH (10:00)
[2020-04-17] MEDS: GABAPENTIN 300 MG CAP PO SCH (10:00)
[2020-04-17] MEDS: cefTRIAXone 1GM/50ML D5W 50 ML IV SCH (10:00)
[2020-04-17 12:50] VITALS: BP 131/47
--- NOTE | 2020-04-17 14:06 | NUR ---
Nutrition Followup Note Wt 76.4 kg Pt was with care team at time of rounds. Pt with adequate po intake aeb pt with 87.5% po since 04/14 per Rn nutrition note. Pt last dialysis 04/15 per RN note Est Energy needs BW 78 k-2106kcals (25-27 kcal/kgBW), Est Protein needs: 93-101 gms/day (1.2-1.3 gm/kgBW r/t HD). Will continue to monitor and reassess prn. Labs: BUN 55H, Ca 8.3L, Creat 3.67H, Gluc 164H, Alb 3.5 WNL BM: 1 BM 04/13 per RN doc Skin: BS 18 mod risk, full details in neonatal critical care nurse doc. PES: Altered nutrition related lab values r.t current chronic medical condition aeb elev RFT hypercapnia, hypocalcemia Comments 1) consider CCHO 60 gm renal std cardiac diet 2) refer to CDE on DC 3) continue current plan of care Expected Outcomes/Goals: pt will have improved labs F/u mod 3-5 days
--- NOTE | 2020-04-17 15:52 | NUR ---
MD WEINER AT BEDSIDE UPDATED MD ON PATIENT'S STATUS, MD IS AWARE. MD WILL PUT IN DISCHARGE ORDERS.
[2020-04-17 16:12] VITALS: BP 131/47
== END 2020-04-17 17:30 | disposition home or self-care (01) | DRG 182 ==
LOC: ER 11:42 → TELE 11:43 → TELE-CENTR 20:13
PROVIDERS: ADMIT Internal Medicine; ATTEND Internal Medicine
PROC: 5A1D70Z Performance of Urinary Filtration, Intermittent, Less than 6 Hours Per Day (ICD-10-PCS; 2020-04-08)
PROC: 5A1D70Z Performance of Urinary Filtration, Intermittent, Less than 6 Hours Per Day (ICD-10-PCS; 2020-04-09)
PROC: 057Y3ZZ Dilation of Upper Vein, Percutaneous Approach (ICD-10-PCS; 2020-04-09)
PROC: 0JH63XZ Insertion of Tunneled Vascular Access Device into Chest Subcutaneous Tissue and Fascia, Percutaneous Approach (ICD-10-PCS; principal; 2020-04-10)
PROC: 02H633Z Insertion of Infusion Device into Right Atrium, Percutaneous Approach (ICD-10-PCS; 2020-04-10)
PROC: B5181ZA Fluoroscopy of Superior Vena Cava using Low Osmolar Contrast, Guidance (ICD-10-PCS; 2020-04-10)
PROC: B548ZZA Ultrasonography of Superior Vena Cava, Guidance (ICD-10-PCS; 2020-04-10)
PROC: B51MYZZ Fluoroscopy of Right Upper Extremity Veins using Other Contrast (ICD-10-PCS; 2020-04-10)
PROC: 5A1D70Z Performance of Urinary Filtration, Intermittent, Less than 6 Hours Per Day (ICD-10-PCS; 2020-04-11)
PROC: 5A1D70Z Performance of Urinary Filtration, Intermittent, Less than 6 Hours Per Day (ICD-10-PCS; 2020-04-13)
PROC: 5A1D70Z Performance of Urinary Filtration, Intermittent, Less than 6 Hours Per Day (ICD-10-PCS; 2020-04-15)
PROC: 5A1D70Z Performance of Urinary Filtration, Intermittent, Less than 6 Hours Per Day (ICD-10-PCS; 2020-04-17)
DX: I13.2 Hypertensive heart and chronic kidney disease with heart failure and with stage 5 chronic kidney disease, or end stage renal disease (principal); J96.20 Acute and chronic respiratory failure, unspecified whether with hypoxia or hypercapnia; I82.C11 Acute embolism and thrombosis of right internal jugular vein; N18.6 End stage renal disease; E11.22 Type 2 diabetes mellitus with diabetic chronic kidney disease; J44.0 Chronic obstructive pulmonary disease with (acute) lower respiratory infection; I50.33 Acute on chronic diastolic (congestive) heart failure; N40.0 Benign prostatic hyperplasia without lower urinary tract symptoms; Z20.828 Contact with and (suspected) exposure to other viral communicable diseases; B96.89 Other specified bacterial agents as the cause of diseases classified elsewhere; E78.5 Hyperlipidemia, unspecified; I25.10 Atherosclerotic heart disease of native coronary artery without angina pectoris; N39.0 Urinary tract infection, site not specified; R31.0 Gross hematuria; Z79.01 Long term (current) use of anticoagulants; Z95.0 Presence of cardiac pacemaker; Z82.49 Family history of ischemic heart disease and other diseases of the circulatory system; J18.9 Pneumonia, unspecified organism; T82.590A Other mechanical complication of surgically created arteriovenous fistula, initial encounter; Z79.4 Long term (current) use of insulin; D63.1 Anemia in chronic kidney disease
CPT/HCPCS: 36415; 36561; 71045; 76937; 77001; 80048; 80053; 80202; 81001; 82728; 82962; 83605; 83615; 83735; 83880; 84484; 85025; 85379; 85610; 85730; 86141; 86850; 86900; 86901; 87040; 87070; 87077; 87081; 87086; 87088; 87186; 87804; 87880; 90935; 93005; 93971; 94640; 99152; 99153; G0378; J0696; J1642; J1815; J2250; J2543; Q9967

== ENCOUNTER 2020-05-17 13:28 | Emergency (ER) | payer MEDICAID ==
[~2020-05-17] VITALS: Ht 177.8 cm; Wt 79.4 kg
[2020-05-17 13:41] VITALS: BP 103/38
== END 2020-05-17 17:57 | disposition home or self-care (01) ==
LOC: ER 13:28
DX: T83.511A Infection and inflammatory reaction due to indwelling urethral catheter, initial encounter (principal)
CPT/HCPCS: 51702; 81002

== ENCOUNTER 2020-06-30 13:17 | Inpatient (IN) | payer MEDICAID ==
[~2020-06-30] VITALS: Ht 175.3 cm; Wt 77.1 kg
[2020-06-30 14:37] LABS: Basophils # (auto) 0.1 10 ^3/uL (0-0.2); Basophils % (auto) 0.7 % (0.0-2.0); Eosinophils # (auto) 0.1 10 ^3/uL (0-0.8); Eosinophils % (auto) 0.6 % (0.0-7.0); Hematocrit 34.5 % (41.0-53.0); Hemoglobin 10.9 g/dL (13.5-17.5); Lymphocytes # (auto) 1.2 10 ^3/uL (0.4-5.4); Lymphocytes % (auto) 9.4 % (10.0-50.0); Mean Corpuscular Hemoglobin 28.4 pg (28.0-32.0); Mean Corpuscular Hgb Conc. 31.5 g/dL (32.0-36.0); Mean Corpuscular Volume 90.1 fL (80.0-100.0); Monocytes % (auto) 7.8 % (0.0-12.0); Neutrophils # (auto) 10.4 10 ^3/uL (1.6-8.6); Neutrophils % (auto) 81.5 % (37.0-80.0); Platelet Count (auto) 171 10^3/uL (140-450); Red Blood Cells 3.83 10^6/uL (4.5-5.90); Red Cell Distribution Width 16.7 % (11.8-14.3); White Blood Cell 12.8 10^3/uL (4.4-10.8)
[2020-06-30 14:43] LABS: Urine Bacteria FEW /hpf (None Seen); Urine Blood 2+ /uL (Negative); Urine Specific Gravity 1.011 (1.001-1.035); Urine WBC 285 /hpf (0 - 3); Urine WBC Clumps PRESENT /hpf (None Seen)
[2020-06-30 14:58] LABS: Chloride 92 mmol/L (98-107); Sodium 127 mmol/L (136-145)
[2020-06-30 15:03] LABS: Alanine Aminotransferase 16 U/L (16-61); Albumin 3.3 g/dL (3.4-5.0); Alkaline Phosphatase 75 U/L (45-117); Anion Gap 7 (5-15); Aspartate Aminotransferase 17 U/L (15-37); BUN/Creatinine Ratio 10.2; Bilirubin, Total 0.4 mg/dL (0.2-1.0); Blood Urea Nitrogen 40 mg/dL (7-18); Calcium 8.6 mg/dL (8.5-10.1); Carbon Dioxide 28 mmol/L (21-32); GFR African American 19 mL/min; GFR Non-African American 15 mL/min; Glucose 168 mg/dL (74-106); Total Protein 7.6 g/dL (6.4-8.2)
[2020-06-30] MEDS ORDERED: cefTRIAXone 1GM/50ML D5W 50 ML IV ONE (15:15)
[2020-06-30 15:51] LABS: Potassium 6.4 mmol/L (3.5-5.1)
[2020-06-30] MEDS ORDERED: ALBUTEROL SULF 2.5 MG/0.5ML(0.5%) NEB SOLN NEB ONE (16:00)
[2020-06-30] MEDS ORDERED: InsuLIN REG 1unit/0.01ml Soln (100units/ml) IV ONE (16:00)
[2020-06-30] MEDS ORDERED: SODIUM BICARBONATE 8.4% INJ 50ML SYRINGE IV ONE (16:00)
[2020-06-30] MEDS ORDERED: CALCIUM GLUC 4.65meq/50ml D5AE 50 ML IV ONE (16:00)
[2020-06-30] MEDS ORDERED: DEXTROSE (50%) 50ML SYRG IV ONE (16:00)
[2020-06-30] MEDS ORDERED: SODIUM ZIRCONIUM CYCL 10 GM PAK PO ONE (16:00)
[2020-06-30] MEDS ORDERED: hydrALAZINE HCL 20 MG/ML VL IV PRN (17:00)
[2020-06-30] MEDS ORDERED: MORPHINE SULF INJ 2 MG/ML SYRINGE 1ML IV PRN (17:00)
[2020-06-30] MEDS ORDERED: NITROGLYCERIN 0.4 MG SL TAB SL PRN (17:00)
[2020-06-30] MEDS ORDERED: ACETAMINOPHEN 500 MG TAB PO PRN (17:00)
[2020-06-30] MEDS ORDERED: LORazepam 0.5 MG TAB PO PRN (17:00)
[2020-06-30] MEDS: SODIUM CHLORIDE 0.9% 1,000 ML IV SCH (17:45)
[2020-06-30 21:30] VITALS: BP 112/58
[2020-06-30] MEDS: CLINDAMYCIN 300MG IV 50 ML IV SCH (21:48)
[2020-06-30] MEDS ORDERED: ALBUTEROL SULF HFA 90MCG INH 200DOSE IN SCH (22:00)
[2020-06-30] MEDS ORDERED: BUDESONIDE (INHALATION) 180 MCG IH IN SCH (22:00)
[2020-07-01 05:00] VITALS: BP 107/45
[2020-07-01] MEDS: CLINDAMYCIN 300MG IV 50 ML IV SCH ×3 (06:00→21:37)
[2020-07-01 08:00] VITALS: BP 107/44
[2020-07-01] MEDS: ALBUTEROL SULF 2.5 MG/0.5ML(0.5%) NEB SOLN NEB SCH ×3 (08:05→22:26)
[2020-07-01] MEDS: BUDESONIDE (INHALATION) 0.5 MG/2 ML NEB NEB SCH ×2 (08:06→22:26)
[2020-07-01 08:20] LABS: Basophils # (auto) 0.1 10 ^3/uL (0-0.2); Basophils % (auto) 0.8 % (0.0-2.0); Eosinophils # (auto) 0.1 10 ^3/uL (0-0.8); Eosinophils % (auto) 0.4 % (0.0-7.0); Hematocrit 30.2 % (41.0-53.0); Hemoglobin 9.5 g/dL (13.5-17.5); Lymphocytes # (auto) 1.2 10 ^3/uL (0.4-5.4); Lymphocytes % (auto) 10.6 % (10.0-50.0); Mean Corpuscular Hemoglobin 28.1 pg (28.0-32.0); Mean Corpuscular Hgb Conc. 31.3 g/dL (32.0-36.0); Mean Corpuscular Volume 89.7 fL (80.0-100.0); Monocytes # (auto) 1.2 10 ^3/uL (0-1.3); Monocytes % (auto) 10.5 % (0.0-12.0); Neutrophils % (auto) 77.7 % (37.0-80.0); Platelet Count (auto) 149 10^3/uL (140-450); Red Blood Cells 3.37 10^6/uL (4.5-5.90); Red Cell Distribution Width 16.9 % (11.8-14.3); White Blood Cell 11.6 10^3/uL (4.4-10.8)
[2020-07-01 08:52] LABS: Albumin 2.8 g/dL (3.4-5.0); Calcium 8.4 mg/dL (8.5-10.1); Magnesium 2.4 mg/dL (1.6-2.6); Potassium 5.2 mmol/L (3.5-5.1)
[2020-07-01 09:11] LABS: BUN/Creatinine Ratio 10.2; Bilirubin, Total 0.4 mg/dL (0.2-1.0); CRP High Sensitivity 9.55 mg/dL (< 0.3); Total Protein 6.5 g/dL (6.4-8.2)
[2020-07-01] MEDS ORDERED: ASCORBIC ACID 1,000 MG TAB PO SCH (10:00)
[2020-07-01] MEDS ORDERED: CHOLECALCIFEROL (VITD3) 2,000 UNIT CAP PO SCH (10:00)
[2020-07-01] MEDS: cefTRIAXone 1GM/50ML D5W 50 ML IV SCH (10:15)
[2020-07-01] MEDS: ENOXAPARIN SOD 30 MG/0.3 ML SYRINGE SC SCH (10:15)
[2020-07-01] MEDS: DOCUSATE CALCIUM 240 MG CAP PO SCH (10:16)
[2020-07-01] MEDS: PANTOPRAZOLE 40 MG/10 ML VIAL INJ IV SCH (10:16)
[2020-07-01] MEDS: ZINC SULFATE 220mg CAP or TAB PO SCH (10:16)
[2020-07-01] MEDS ORDERED: SODIUM CHL 0.9% 1000 ML BAG XX ONE (11:45)
[2020-07-01 12:30] VITALS: BP 109/52
[2020-07-01 15:32] VITALS: BP 109/52
[2020-07-01 16:58] VITALS: BP 108/48
[2020-07-01] MEDS: SODIUM CHLORIDE 0.9% 1,000 ML IV SCH (18:21)
[2020-07-01 21:00] VITALS: BP 112/51
[2020-07-01] MEDS ORDERED: EPOETIN ALFA 10,000 UNIT/1 ML VIAL SC ONE (21:00)
[2020-07-02 05:00] VITALS: BP 116/67
[2020-07-02 05:36] LABS: Eosinophils # (auto) 0.3 10 ^3/uL (0-0.8); Lymphocytes # (auto) 1.3 10 ^3/uL (0.4-5.4); Neutrophils # (auto) 5.3 10 ^3/uL (1.6-8.6); White Blood Cell 7.9 10^3/uL (4.4-10.8)
[2020-07-02 05:40] LABS: Basophils # (auto) 0.1 10 ^3/uL (0-0.2); Basophils % (auto) 0.8 % (0.0-2.0); Eosinophils % (auto) 3.4 % (0.0-7.0); Hematocrit 30.6 % (41.0-53.0); Hemoglobin 9.6 g/dL (13.5-17.5); Mean Corpuscular Hemoglobin 28.3 pg (28.0-32.0); Mean Corpuscular Hgb Conc. 31.4 g/dL (32.0-36.0); Mean Corpuscular Volume 90.2 fL (80.0-100.0); Monocytes % (auto) 12.9 % (0.0-12.0); Neutrophils % (auto) 66.9 % (37.0-80.0); Platelet Count (auto) 159 10^3/uL (140-450); Red Blood Cells 3.39 10^6/uL (4.5-5.90); Red Cell Distribution Width 16.8 % (11.8-14.3)
[2020-07-02 06:03] LABS: Calcium 8.2 mg/dL (8.5-10.1); Potassium 4.6 mmol/L (3.5-5.1)
[2020-07-02] MEDS: CLINDAMYCIN 300MG IV 50 ML IV SCH ×2 (06:03→14:00)
[2020-07-02 06:05] LABS: BUN/Creatinine Ratio 8.9
[2020-07-02] MEDS: ALBUTEROL SULF 2.5 MG/0.5ML(0.5%) NEB SOLN NEB SCH (06:33)
[2020-07-02] MEDS: BUDESONIDE (INHALATION) 0.5 MG/2 ML NEB NEB SCH (06:34)
[2020-07-02 08:54] VITALS: BP 119/45
[2020-07-02] MEDS: cefTRIAXone 1GM/50ML D5W 50 ML IV SCH (09:49)
[2020-07-02] MEDS: ZINC SULFATE 220mg CAP or TAB PO SCH (09:49)
[2020-07-02] MEDS: ENOXAPARIN SOD 30 MG/0.3 ML SYRINGE SC SCH (09:49)
[2020-07-02] MEDS: PANTOPRAZOLE 40 MG/10 ML VIAL INJ IV SCH (09:49)
[2020-07-02] MEDS: DOCUSATE CALCIUM 240 MG CAP PO SCH (09:50)
[2020-07-02] MEDS ORDERED: CHOLECALCIFEROL (VITD3) 1,000UNIT=25mCg TAB PO SCH (10:00)
[2020-07-02] MEDS ORDERED: ASCORBIC ACID 500 MG TAB PO SCH (10:00)
[2020-07-02] MEDS ORDERED: CIPR-173 PO (10:11)
[2020-07-02 13:00] VITALS: BP 113/47
[2020-07-02 13:17] VITALS: BP 113/47
== END 2020-07-02 13:57 | disposition home or self-care (01) | DRG 52 ==
LOC: ER 13:17 → EDBD 13:17 → TELE-EAST 13:18 → TELE-CENTR 07-01 06:15
PROVIDERS: ATTEND Internal Medicine Pulmonary Disease
PROC: 5A1D70Z Performance of Urinary Filtration, Intermittent, Less than 6 Hours Per Day (ICD-10-PCS; principal; 2020-06-29)
DX: G93.41 Metabolic encephalopathy (principal); E87.5 Hyperkalemia; E87.1 Hypo-osmolality and hyponatremia; Z79.4 Long term (current) use of insulin; E78.5 Hyperlipidemia, unspecified; F32.9 Major depressive disorder, single episode, unspecified; F41.9 Anxiety disorder, unspecified; E11.22 Type 2 diabetes mellitus with diabetic chronic kidney disease; Z99.2 Dependence on renal dialysis; N18.6 End stage renal disease; E11.65 Type 2 diabetes mellitus with hyperglycemia; F03.90 Unspecified dementia, unspecified severity, without behavioral disturbance, psychotic disturbance, mood disturbance, and anxiety; I13.2 Hypertensive heart and chronic kidney disease with heart failure and with stage 5 chronic kidney disease, or end stage renal disease; I50.32 Chronic diastolic (congestive) heart failure; J44.9 Chronic obstructive pulmonary disease, unspecified; Z79.899 Other long term (current) drug therapy; Z82.49 Family history of ischemic heart disease and other diseases of the circulatory system; Z20.828 Contact with and (suspected) exposure to other viral communicable diseases; N39.0 Urinary tract infection, site not specified
CPT/HCPCS: 36415; 70450; 71045; 80048; 80053; 81001; 82728; 83036; 83615; 83735; 84132; 84443; 84484; 85025; 85379; 86141; 87040; 87086; 87426; 90935; 93005; 94640; 94644; 96365; 96375; C9113; G0378; J0610; J0696; J0885; J1815; J3490

== ENCOUNTER 2020-07-24 10:55 | Inpatient (IN) | payer MEDICAID ==
[~2020-07-24] VITALS: Ht 172.7 cm; Wt 79.6 kg
[~2020-07-24 10:55] MED LIST changes: +CIPR-173 PO
[2020-07-24 12:02] LABS: Basophils # (auto) 0.1 10 ^3/uL (0-0.2); Basophils % (auto) 0.4 % (0.0-2.0); Eosinophils # (auto) 0.1 10 ^3/uL (0-0.8); Eosinophils % (auto) 0.6 % (0.0-7.0); Hematocrit 34.9 % (41.0-53.0); Hemoglobin 11.1 g/dL (13.5-17.5); Lymphocytes # (auto) 1.6 10 ^3/uL (0.4-5.4); Lymphocytes % (auto) 12.6 % (10.0-50.0); Mean Corpuscular Hemoglobin 27.8 pg (28.0-32.0); Mean Corpuscular Hgb Conc. 31.9 g/dL (32.0-36.0); Mean Corpuscular Volume 87.1 fL (80.0-100.0); Monocytes # (auto) 1.1 10 ^3/uL (0-1.3); Monocytes % (auto) 8.8 % (0.0-12.0); Neutrophils # (auto) 10.1 10 ^3/uL (1.6-8.6); Neutrophils % (auto) 77.6 % (37.0-80.0); Platelet Count (auto) 197 10^3/uL (140-450); Red Blood Cells 4.01 10^6/uL (4.5-5.90); Red Cell Distribution Width 16.7 % (11.8-14.3)
[2020-07-24 12:16] LABS: Albumin 2.9 g/dL (3.4-5.0); Anion Gap 8 (5-15); Calcium 8.2 mg/dL (8.5-10.1); Carbon Dioxide 27 mmol/L (21-32); Chloride 96 mmol/L (98-107); GFR African American 11 mL/min; GFR Non-African American 9 mL/min; Glucose 205 mg/dL (74-106); Magnesium 2.7 mg/dL (1.6-2.6); Sodium 131 mmol/L (136-145)
[2020-07-24 12:21] LABS: Alanine Aminotransferase 22 U/L (16-61); Alkaline Phosphatase 69 U/L (45-117); Aspartate Aminotransferase 9 U/L (15-37); Bilirubin, Total 0.5 mg/dL (0.2-1.0); Total Protein 7.4 g/dL (6.4-8.2)
[2020-07-24 12:33] LABS: Blood Urea Nitrogen 81 mg/dL (7-18); Potassium 6.1 mmol/L (3.5-5.1)
[2020-07-24] MEDS ORDERED: CALCIUM GLUC 4.65meq/50ml D5AE 50 ML IV ONE (13:00)
[2020-07-24] MEDS ORDERED: SODIUM BICARBONATE 8.4 % INJ 50ML VIAL IV ONE (13:00)
[2020-07-24] MEDS ORDERED: NITROGLYCERIN 0.4 MG SL TAB SL PRN (13:30)
[2020-07-24] MEDS ORDERED: DOCUSATE CALCIUM 240 MG CAP PO PRN (13:30)
[2020-07-24] MEDS ORDERED: MORPHINE SULF INJ 2 MG/ML SYRINGE 1ML IV PRN (13:30)
[2020-07-24] MEDS ORDERED: hydrALAZINE HCL 20 MG/ML VL IV PRN (13:30)
[2020-07-24] MEDS ORDERED: SODIUM CHLORIDE 0.9% 1,000 ML IV SCH (13:30)
[2020-07-24] MEDS ORDERED: SODIUM ZIRCONIUM CYCL 10 GM PAK PO ONE (13:45)
[2020-07-24] MEDS ORDERED: LIDO2.5C3 EX (16:32)
[2020-07-24 16:53] LABS: Urine Bacteria MOD /hpf (None Seen); Urine Blood 1+ /uL (Negative); Urine Budding Yeast MODERATE /hpf (None Seen); Urine Specific Gravity 1.013 (1.001-1.035); Urine WBC 917 /hpf (0 - 3); Urine WBC Clumps PRESENT /hpf (None Seen)
[2020-07-24] MEDS ORDERED: APIX2.5T PO (17:14)
[2020-07-24] MEDS ORDERED: GABA300C10 PO (17:28)
[2020-07-24 20:13] VITALS: BP 109/43
[2020-07-24] MEDS: DOXAZOSIN MESYL 2 MG TAB PO SCH (21:12)
[2020-07-24 22:14] VITALS: BP 109/43
[2020-07-24] MEDS: BUDESONIDE (INHALATION) 0.5 MG/2 ML NEB NEB SCH (22:23)
[2020-07-24 23:02] VITALS: BP 114/47
[2020-07-25 05:43] VITALS: BP 105/50
[2020-07-25 06:31] LABS: Basophils # (auto) 0 10 ^3/uL (0-0.2); Basophils % (auto) 0.4 % (0.0-2.0); Eosinophils # (auto) 0.1 10 ^3/uL (0-0.8); Eosinophils % (auto) 1.3 % (0.0-7.0); Hemoglobin 10.5 g/dL (13.5-17.5); Lymphocytes # (auto) 1.8 10 ^3/uL (0.4-5.4); Lymphocytes % (auto) 16.1 % (10.0-50.0); Mean Corpuscular Hemoglobin 27.9 pg (28.0-32.0); Mean Corpuscular Hgb Conc. 31.9 g/dL (32.0-36.0); Mean Corpuscular Volume 87.5 fL (80.0-100.0); Monocytes # (auto) 1.3 10 ^3/uL (0-1.3); Monocytes % (auto) 11.2 % (0.0-12.0); Neutrophils # (auto) 7.9 10 ^3/uL (1.6-8.6); Platelet Count (auto) 186 10^3/uL (140-450); Red Blood Cells 3.77 10^6/uL (4.5-5.90); Red Cell Distribution Width 16.4 % (11.8-14.3); White Blood Cell 11.2 10^3/uL (4.4-10.8)
[2020-07-25 06:41] LABS: INR 1.07 (0.9-1.15); Partial Thromboplastin Time 31.3 sec (23.0-31.2)
[2020-07-25 07:01] LABS: Albumin 2.9 g/dL (3.4-5.0); BUN/Creatinine Ratio 13.6; Bilirubin, Total 0.5 mg/dL (0.2-1.0); Calcium 8.6 mg/dL (8.5-10.1); Phosphorus 6.6 mg/dL (2.5-4.90)
[2020-07-25] MEDS: ALBUTEROL SULF 2.5 MG/0.5ML(0.5%) NEB SOLN NEB PRN (07:17)
[2020-07-25] MEDS: BUDESONIDE (INHALATION) 0.5 MG/2 ML NEB NEB SCH ×2 (07:18→22:24)
[2020-07-25 07:36] LABS: Potassium 5.7 mmol/L (3.5-5.1)
[2020-07-25 08:28] VITALS: BP 112/55
[2020-07-25] MEDS: amLODIPine BESYLATE 5 MG TAB PO SCH (10:00)
[2020-07-25] MEDS: ALOGLIPTIN BENZOATE 12.5 MG PO SCH (10:00)
[2020-07-25] MEDS: ASPirin-EC 81 mg tab PO SCH (10:17)
[2020-07-25] MEDS: ENOXAPARIN SOD 30 MG/0.3 ML SYRINGE SC SCH (10:17)
[2020-07-25] MEDS: PARoxetine 20 MG TAB PO SCH (10:17)
[2020-07-25] MEDS: PANTOPRAZOLE 40 MG TAB PO SCH (10:17)
[2020-07-25] MEDS ORDERED: cefTRIAXone 1GM/50ML D5W 50 ML IV ONE (11:30)
[2020-07-25] MEDS ORDERED: DEXTROSE (50%) 50ML SYRG IV PRN (12:15)
[2020-07-25 12:46] VITALS: BP 109/48
[2020-07-25] MEDS ORDERED: SODIUM CHL 0.9% 1000 ML BAG XX ONE (13:30)
[2020-07-25] MEDS ORDERED: DEXTROSE (50%) 50ML SYRG IV ONE (14:45)
[2020-07-25] MEDS ORDERED: CALCIUM GLUC 4.65meq/50ml D5AE 50 ML IV ONE (14:45)
[2020-07-25] MEDS ORDERED: SODIUM BICARBONATE 8.4% INJ 50ML SYRINGE IV ONE (14:45)
[2020-07-25] MEDS ORDERED: ALBUTEROL SULF 2.5 MG/0.5ML(0.5%) NEB SOLN NEB ONE (14:45)
[2020-07-25] MEDS ORDERED: SODIUM ZIRCONIUM CYCL 10 GM PAK PO ONE (14:45)
[2020-07-25] MEDS ORDERED: InsuLIN REG 1unit/0.01ml Soln (100units/ml) IV ONE (14:45)
[2020-07-25] MEDS: ACCU-CHEK COMFORT CURVE STRIP VI SCH ×2 (17:03→21:50)
[2020-07-25] MEDS: InsuLIN REG 1unit/0.01ml Soln (100units/ml) SC SCH ×2 (17:04→22:42)
[2020-07-25 17:31] VITALS: BP 108/50
[2020-07-25] MEDS ORDERED: EPOETIN ALFA 4,000 UNIT/ML VL SC ONE (21:00)
[2020-07-25 21:39] VITALS: BP 115/54
[2020-07-25] MEDS: DOXAZOSIN MESYL 2 MG TAB PO SCH (21:50)
[2020-07-25] MEDS: LORazepam 0.5 MG TAB PO PRN (22:40)
[2020-07-26 04:58] VITALS: BP 103/49
[2020-07-26 06:58] LABS: Calcium 7.9 mg/dL (8.5-10.1); Potassium 4.8 mmol/L (3.5-5.1)
[2020-07-26] MEDS: ACCU-CHEK COMFORT CURVE STRIP VI SCH ×4 (07:00→22:07)
[2020-07-26 07:01] LABS: BUN/Creatinine Ratio 15.2
[2020-07-26] MEDS: InsuLIN REG 1unit/0.01ml Soln (100units/ml) SC SCH ×4 (07:01→22:31)
[2020-07-26 09:00] VITALS: BP 113/52
[2020-07-26] MEDS: amLODIPine BESYLATE 5 MG TAB PO SCH (10:00)
[2020-07-26] MEDS: ALOGLIPTIN BENZOATE 12.5 MG PO SCH (10:00)
[2020-07-26] MEDS: BUDESONIDE (INHALATION) 0.5 MG/2 ML NEB NEB SCH ×2 (10:00→22:34)
[2020-07-26] MEDS: cefTRIAXone 1GM/50ML D5W 50 ML IV SCH (10:13)
[2020-07-26] MEDS: ASPirin-EC 81 mg tab PO SCH (10:14)
[2020-07-26] MEDS: PARoxetine 20 MG TAB PO SCH (10:14)
[2020-07-26] MEDS: SODIUM ZIRCONIUM CYCL 10 GM PAK PO SCH (10:14)
[2020-07-26] MEDS: PANTOPRAZOLE 40 MG TAB PO SCH (10:14)
[2020-07-26] MEDS: ENOXAPARIN SOD 30 MG/0.3 ML SYRINGE SC SCH (10:14)
[2020-07-26 13:00] VITALS: BP 112/50
[2020-07-26 17:00] VITALS: BP 106/51
[2020-07-26] MEDS: Glucerna Carbsteady SHAKE Vanilla 8oz PO SCH (17:38)
[2020-07-26] MEDS: DOXAZOSIN MESYL 2 MG TAB PO SCH (22:08)
[2020-07-26] MEDS: LORazepam 0.5 MG TAB PO PRN (22:30)
[2020-07-26 23:19] VITALS: BP 112/57
[2020-07-27 05:15] VITALS: BP 104/51
[2020-07-27 06:28] LABS: Basophils # (auto) 0 10 ^3/uL (0-0.2); Basophils % (auto) 0.8 % (0.0-2.0); Eosinophils # (auto) 0.4 10 ^3/uL (0-0.8); Eosinophils % (auto) 7.4 % (0.0-7.0); Hematocrit 28.9 % (41.0-53.0); Hemoglobin 9.5 g/dL (13.5-17.5); Lymphocytes # (auto) 0.9 10 ^3/uL (0.4-5.4); Lymphocytes % (auto) 15.2 % (10.0-50.0); Mean Corpuscular Hemoglobin 28.3 pg (28.0-32.0); Mean Corpuscular Hgb Conc. 32.8 g/dL (32.0-36.0); Mean Corpuscular Volume 86.1 fL (80.0-100.0); Monocytes # (auto) 0.9 10 ^3/uL (0-1.3); Monocytes % (auto) 15.7 % (0.0-12.0); Neutrophils # (auto) 3.5 10 ^3/uL (1.6-8.6); Neutrophils % (auto) 60.9 % (37.0-80.0); Platelet Count (auto) 172 10^3/uL (140-450); Red Blood Cells 3.35 10^6/uL (4.5-5.90); White Blood Cell 5.8 10^3/uL (4.4-10.8)
[2020-07-27] MEDS: ACCU-CHEK COMFORT CURVE STRIP VI SCH ×2 (06:29→11:41)
[2020-07-27] MEDS: InsuLIN REG 1unit/0.01ml Soln (100units/ml) SC SCH ×2 (06:29→11:41)
[2020-07-27 06:46] LABS: BUN/Creatinine Ratio 15.7; Potassium 3.8 mmol/L (3.5-5.1)
[2020-07-27 08:00] VITALS: BP 121/51
[2020-07-27 09:00] VITALS: BP 121/51
[2020-07-27] MEDS: cefTRIAXone 1GM/50ML D5W 50 ML IV SCH (09:53)
[2020-07-27] MEDS: ASPirin-EC 81 mg tab PO SCH (09:53)
[2020-07-27] MEDS: PARoxetine 20 MG TAB PO SCH (09:53)
[2020-07-27] MEDS: ENOXAPARIN SOD 30 MG/0.3 ML SYRINGE SC SCH (09:53)
[2020-07-27] MEDS: PANTOPRAZOLE 40 MG TAB PO SCH (09:54)
[2020-07-27] MEDS: amLODIPine BESYLATE 5 MG TAB PO SCH (09:54)
[2020-07-27] MEDS: SODIUM ZIRCONIUM CYCL 10 GM PAK PO SCH (09:55)
[2020-07-27] MEDS: ALOGLIPTIN BENZOATE 12.5 MG PO SCH (10:00)
[2020-07-27] MEDS: Glucerna Carbsteady SHAKE Vanilla 8oz PO SCH ×2 (10:03→12:00)
[2020-07-27] MEDS: ALBUTEROL SULF 2.5 MG/0.5ML(0.5%) NEB SOLN NEB PRN (10:10)
[2020-07-27] MEDS: BUDESONIDE (INHALATION) 0.5 MG/2 ML NEB NEB SCH (10:10)
[2020-07-27 13:00] VITALS: BP 121/47
[2020-07-27 16:04] VITALS: BP 121/51
[2020-07-27 17:00] VITALS: BP 110/42
[2020-07-28] MEDS ORDERED: SODIUM ZIRCONIUM CYCL 10 GM PAK PO ONE (10:00)
== END 2020-07-27 18:01 | disposition home or self-care (01) | DRG 111 ==
LOC: ER 10:55 → EDBD 10:55 → TELE 10:56 → TELE-WESTW 20:17
PROVIDERS: ATTEND Internal Medicine
PROC: 5A1D70Z Performance of Urinary Filtration, Intermittent, Less than 6 Hours Per Day (ICD-10-PCS; principal; 2020-07-24)
PROC: 5A1D70Z Performance of Urinary Filtration, Intermittent, Less than 6 Hours Per Day (ICD-10-PCS; 2020-07-25)
PROC: 5A1D70Z Performance of Urinary Filtration, Intermittent, Less than 6 Hours Per Day (ICD-10-PCS; 2020-07-27)
DX: H83.09 Labyrinthitis, unspecified ear (principal); I13.2 Hypertensive heart and chronic kidney disease with heart failure and with stage 5 chronic kidney disease, or end stage renal disease; E44.0 Moderate protein-calorie malnutrition; N18.6 End stage renal disease; E87.5 Hyperkalemia; E87.1 Hypo-osmolality and hyponatremia; E83.42 Hypomagnesemia; E11.22 Type 2 diabetes mellitus with diabetic chronic kidney disease; J44.9 Chronic obstructive pulmonary disease, unspecified; I50.32 Chronic diastolic (congestive) heart failure; E11.65 Type 2 diabetes mellitus with hyperglycemia; I42.9 Cardiomyopathy, unspecified; N39.0 Urinary tract infection, site not specified; R09.89 Other specified symptoms and signs involving the circulatory and respiratory systems; J98.11 Atelectasis; D63.8 Anemia in other chronic diseases classified elsewhere; Z82.49 Family history of ischemic heart disease and other diseases of the circulatory system; Z99.2 Dependence on renal dialysis
CPT/HCPCS: 36415; 51702; 71045; 80048; 80053; 80061; 81001; 82962; 83036; 83605; 83735; 84100; 84484; 85025; 85610; 85730; 87040; 87081; 87086; 90935; 94640; 96365; 96375; 97163; 99291; G0378; J0610; J0696; J1815